=== PATIENT | male | born 1945 | race Caucasian/White ===

== ENCOUNTER 2019-05-11 07:54 | Outpatient (CLI) | payer MEDICARE, SELFPAY ==
--- NOTE | ~2019-05-11 | XR_ITS ---
EXAMINATION: XR knee LT min 4V EXAM DATE: 05/11/2019 08:28 INDICATION: No known recent injury provided at this time. Pain of the left knee. There was reported injury on 04/15/2019. TECHNIQUE: Left knee lateral, frontal AP, frontal PA tunnel, sunrise projections. Comparison is made to prior examination from 04/15/2019. FINDINGS: There are no acute left knee fractures or dislocations identified. There is severe primary osteoarthritis. Complete loss of the medial tibiofemoral joint space compartment. There is no subcut aneous gas. There is moderate amount of nonspecific joint fluid. This is most commonly sterile effus ion. Possible underlying etiologies include reactive from arthritis, overuse, or trauma. Hemarthrosi s and septic effusion are not radiographically excludable. Please clinically correlate. There is me niscal chondrocalcinosis. Chondrocalcinosis can be an age related finding, but with other possible et iologies including CPPD, parathyroid disorders, hemochromatosis, gout. There are no radiopaque fore ign bodies. Large amount of suprapatellar enthesopathy. Joint effusion and other findings appear unc hanged compared to prior study. IMPRESSION: Severe osteoarthritis. Chondrocalcinosis. Joint fluid. Reviewed, dictated and finalized at location A. BANDER
== END 2019-05-11 07:55 | disposition home or self-care (01) ==
PROVIDERS: PCP Family Medicine; Visit Provider Orthopaedic Surgery
DX: M25.562 Pain in left knee (principal)
CPT/HCPCS: 73564

== ENCOUNTER 2019-05-25 08:36 | Outpatient (CLI) | payer MEDICARE, SELFPAY ==
--- NOTE | ~2019-05-25 | XR_ITS ---
EXAMINATION: XR shoulder LT min 2V DATE: 05/25/2019 09:14 INDICATION: Left shoulder pain. Injury. TECHNIQUE: 5 views of left shoulder were obtained. COMPARISON: None. FINDINGS: Bone alignment is normal. No fracture. There is severe osteoarthritis of glenohumeral joint and moderate osteoarthritis of acromioclavicular joint. There is a loose body in acromioclavicular j oint. IMPRESSION: 1. Polyarticular osteoarthritis. Reviewed, dictated and finalized at location A. CTOR PEDIATRIC
== END 2019-05-25 08:37 | disposition home or self-care (01) ==
LOC: CHSIMG 08:39
PROVIDERS: PCP Family Medicine; Visit Provider Orthopaedic Surgery
DX: M25.512 Pain in left shoulder (principal)
CPT/HCPCS: 73030

== ENCOUNTER 2019-06-01 09:38 | Outpatient (RCR) | payer MEDICARE, SELFPAY ==
--- NOTE | 2019-06-01 11:10 | PTOPEVAL ---
Thank you for referring this patient to [facility]. Please review, sign, date and return this plan of care [facility]. I agree with and certify that the following plan of care is medically necessary. Referring Physician Date Admitting Provider: Attending Provider: Jatinder Graves MD Referring Provider: *PT Outpatient Evaluation Start: 06/01/19 10:03 Freq: Status: Active Protocol: Document 06/01/19 10:00 [facility] (Rec: 06/01/19 10:35 [facility] [id number]) Therapy Assessment Status Assessment Status Assessment Status Evaluation Outpatient Past Medical History Past Medical History Reason Unable to Obtain see patient intake form Evaluation Information Problem Diagnosis L shoulder pain Onset 05/25/19 Subjective Information patient reports he has been Query Text:As Reported By Patient/ having pain in the L shoulder Family for a few weeks. he reports the shoulder dislocated and he was able to push it back in himself. he reports he has andrea to the MD who gave him and injection. patient reports the shoudler has felt better since his injection. he reports he is having difficulty with putting on his jacket, getting up and down to a cahir, and reaching to his side and above his head. he reports bathing and dressing are difficult due to the L shoulder pain and immobility. Prior Level of Function Comments Additional Prior Level of Function patient uses a Opposing [employer] cane Comments in the R UE. he is complicated by a fused R knee joint. he also has been complicated by injuries/surgeries/instability of the L knee. he reports prior to a few weeks ago, he was in no pain with daily activities ADL's with the L shoulder. Pain Assessment Timing of Pain Assessment Timing of Pain Assessment Assessment Pain Scale Pain Scale Used Numeric (1 - 10) Self Report Pain Assessment Left Shoulder(s) Reported Pain Level 3 Pain Description Aching,Soreness Current Pain Intensity 3 Lowest Pain Intensity 1 Greatest Pain Intensity
== END 2019-06-01 17:00 | disposition home or self-care (01) ==
LOC: CHSPT 09:38
PROVIDERS: Visit Provider Orthopaedic Surgery
DX: M25.512 Pain in left shoulder (principal)
CPT/HCPCS: 97014; 97110; 97161; G0283

== ENCOUNTER 2020-06-01 17:25 | Inpatient (IN) | payer MEDICARE, SELFPAY ==
--- NOTE | ~2020-06-01 | CT_ITS ---
EXAMINATION: CT pelvis wo con DATE: 06/01/2020 20:48 INDICATION: Hip pain TECHNIQUE: Computed tomography (CT) of the pelvis was performed without intravenous contrast. The dos e-length product was 623.31 mGy-cm. Automated exposure control and iterative reconstruction technique were employed. COMPARISON: CT dated 09/01/2014 FINDINGS: There is osteopenia. There is moderate osteoarthritis of the hips. There is advanced lower lumbar spondylosis. No acute fracture or traumatic malalignment. Small fat-containing umbilical herni a. Mildly enlarged prostate gland. Visualized bowel is unremarkable. No bladder abnormalities. No lym phadenopathy. No significant vascular abnormality. IMPRESSION: 1. No acute fracture. Reviewed, dictated and finalized at location A. LE LAB TECHNICIAN IMPRESSION: 1. No acute fracture.
--- NOTE | ~2020-06-01 | MR_ITS ---
EXAMINATION: MR hip LT wo con DATE: 06/02/2020 17:20 INDICATION: Acute left hip pain. TECHNIQUE: Magnetic resonance imaging (MRI) of the left hip was performed without intravenous contras t. Sequences included axial and coronal PD-weighted FS FSE and axial T1-weighted FSE of the pelvis. S equences of the hip included 2D FIESTA, T1-weighted fast GRE, and axial, coronal, and sagittal PD-alexis ghted FS FSE. COMPARISON: CT pelvis 06/01/2020 FINDINGS: Bones/cartilage: Bone alignment is normal. No fracture. There is moderate lumbar spondylosis. There is mild osteoarthr itis of the hips. Labrum: There are tears of the acetabular jasmine bilaterally. Fluid: There are small effusions of the hip joints. There is mild bilateral trochanteric bursitis. Soft tissues: The prostate is mildly enlarged. There is moderate right gluteus minimus tendinopathy. There is mild right gluteus medius tendinopathy and mild left gluteus minimus and gluteus medius tendinopathy. Ther e is edema in left gluteus minimus muscle at its attachment to the ilium, consistent with strain. The iliopsoas tendons are normal. There is moderate tendinopathy of the hamstring origins bilaterally. IMPRESSION: 1. Mild osteoarthritis of the hips. 2. Small bilateral hip joint effusions. 3. Mild strain of left gluteus minimus muscle. Reviewed, dictated and finalized at location A. TENANCE FITTER
--- NOTE | ~2020-06-01 | XR_ITS ---
XR lumbar spine 2-3V 06/01/2020 22:20 Indication: Left hip and low back pain Procedure: 3 views of the lumbar spine Comparison: CT dated 09/01/2014 Findings: Moderate-severe lower thoracic and lumbar spondylosis. There is moderate lower facet hypert rophy. There is chronic wedge compression deformities of T11 and T12. No acute fracture or traumatic malalignment. No evidence for spondylolisthesis. There is levoscoliosis centered at L1. Sacral forame n are symmetric. Impression: 1: No acute abnormality of the lumbar spine. 2: Moderate-severe lumbar spondylosis with levoscoliosis. Reviewed, dictated and finalized at location A. D AUDITOR Impression: 1: No acute abnormality of the lumbar spine. 2: Moderate-severe lumbar spondylosis with levoscoliosis.
--- NOTE | ~2020-06-01 | XR_ITS ---
XR hip LT 2V w AP pelvis 06/01/2020 18:50 Indication: Left hip pain Procedure: AP pelvis and 2 views left hip Comparison: No prior studies for comparison. Findings: There is moderate osteoarthritis of the hips. Pelvic rings are intact. Sacral foramen are s ymmetric. There is lower lumbar spondylosis. No fracture or traumatic malalignment. There are vascula r calcifications at the femoral level. Impression: 1: Moderate symmetric osteoarthritis of the hips. Reviewed, dictated and finalized at location A. FABRIC CUTTER Impression: 1: Moderate symmetric osteoarthritis of the hips.
[2020-06-01 17:35] VITALS: BP 162/92; PULSE 93; RESP 17; TEMP 36.3; O2SAT 98
[2020-06-01] MEDS: MORPHINE SULFATE (*CRX) 4 MG/ML INJ IV PUSH (18:24)
--- NOTE | 2020-06-01 19:45 | ED.GENADULT ---
HPI - General Adult General Chief complaint: Extremity Injury, Lower Stated complaint: left hip pain Time Seen by Provider: 06/01/20 17:41 History of Present Illness HPI narrative: Patient is a 75-year-old male who presents to the ER with left hip pain. Reports 1 week ago he attempted to lift up 200 pound box containing a black stone grill by himself when he developed sudden onset pain. There is initially in the buttock region is now settled into the left hip region. Is worse with trying to bear weight and cannot walk to the bathroom anymore. Occasionally have radiation up towards his buttock and then down to his thigh. No foot drop or overt numbness. No saddle anesthesia or inability to urinate/stool. Related Data Allergies Allergy/AdvReac Type Severity Reaction Status Date / Time NSAIDS (Non-Steroidal Allergy Intermediate Unknown Verified 06/01/20 17:26 Anti-Inflamma metoclopramide Allergy Unknown Unknown Verified 06/01/20 17:26 Review of Systems Gastrointestinal: Gastrointestinal: Denies abdominal pain, Denies nausea and Denies vomiting Genitourinary: Genitourinary: Denies dysuria, Denies urinary frequency and Denies urinary incontinence Musculoskeletal: Musculoskeletal: Denies back pain, Reports arthralgias, Denies joint swelling and Reports muscle cramps Neurologic: Denies focal weakness and Denies numbness PMFSH Past Medical History Medical History (Updated 06/01/20 @ 23:27 by Levi Castro MD) Arthritis High cholesterol Vision abnormalities Vision loss Surgical History Surgical History History of shoulder surgery 3 History of surgery Right leg, 5 History of surgery Left leg, 2 Family History Family History Other Arthritis Cancer Hypertension Social History Social History Smoking status: Never smoker Alcohol intake: current Drinks per week: 1 Substance use: current 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 HEAD: Normocephalic, atraumatic. CHEST: Clear to auscultation. No respiratory distress. HEART: Regular rate and rhythm. Normal peripheral pulses. EXTREMITIES: Focused exam of left lower extremity reveals full range of motion of the left hip and knee without reproducible point tenderness with palpation and no shortening/deformity. However when patient tries to shift his weight he has sudden severe pain over the greater trochanter. SKIN: Warm, dry, no rash. NEURO: Alert and oriented x3. PSYCH: Normal mood and affect. Course Course Emergency Course: Patient still with significant pain after Dilaudid/Valium/morphine. Discussed with Dr. Graves. Admit obs for further evaluation. He will examine him and determine what type of MRI may be needed. Patient may have an abductor muscle tear. Patient accepted to hospital service. At 1 point while in the ER patient had some left arm pain that lasted for short amount of time. She had an EKG performed but he never had any chest pain. Vital Signs Vital signs: Vital Signs Temperature 97.3 F L 06/01/20 17:35 Pulse Rate 93 06/01/20 17:35 Respiratory Rate 17 06/01/20 17:35 Blood Pressure 162/92 H 06/01/20 17:35 Pulse Oximetry 98 06/01/20 17:35 Temperature 97.3 F L 06/01/20 17:35 Pulse Rate 94 06/01/20 21:58 Respiratory Rate 14 06/01/20 21:58 Blood Pressure 175/95 H 06/01/20 21:58 Pulse Oximetry 93 06/01/20 21:58 Medical Decision Making Vital Signs Vital Signs: Vital Signs Temperature 97.3 F L 06/01/20 17:35 Pulse Rate 93 06/01/20 17:35 Respiratory Rate 17 06/01/20 17:35 Blood Pressure 162/92 H 06/01/20 17:35
[2020-06-01] MEDS: diazePAM INJ (*CRX) 10 MG/2 ML SYRINGE 5 MG IV PUSH (20:37)
[2020-06-01] MEDS: ONDANSETRON INJ 4 MG/2 ML VIAL (20:37)
[2020-06-01 21:17] VITALS: BP 151/95; PULSE 94; RESP 19; O2SAT 95
[2020-06-01 21:25] LABS: Basophils Percent Auto 0.2 % (0.2-1.2); Eosinophils Absolute Auto 0.1 K/mm3 (0-0.3); Eosinophils Percent Auto 0.7 % (0-4.4); Hematocrit 48.3 % (42.0-52.0); Immature Granulocyte Absolute 0.03 K/mm3 (0.00-0.031); Immature Granulocyte Percent A 0.3 % (0-0.5); Lymphocytes Absolute Auto 1.68 K/mm3 (0.9-3.2); Lymphocytes Percent Auto 16.8 % (18.3-44.2); Mean Corpuscular HGB Conc 33.1 g/dl (32-36); Mean Corpuscular Hemoglobin 29.3 pg (26-34); Mean Corpuscular Volume 88.3 fl (80-100); Monocytes Absolute Auto 0.5 K/mm3 (0.1-0.6); Monocytes Percent Auto 4.9 % (2.6-8.5); Neutrophils Absolute Auto 7.7 K/mm3 (1.3-6.7); Neutrophils Percent Auto 77.1 % (45.5-73.1); Platelet Count Result 217 k/mm3 (150-375); Red Blood Count 5.47 M/mm3 (4.6-6.20); Red Cell Distribution Width 14.4 % (11.5-14.5)
[2020-06-01 21:40] LABS: Anion Gap 5 mmol/L (8-16); Blood Urea Nitrogen 25 mg/dL (9-20); CRP 0.9 mg/dL (<1.0); Calcium 9.5 mg/dL (8.4-10.2); Carbon Dioxide 28 mmol/L (22-30); Chloride 105 mmol/L (98-107); Estimated CRCL calculation 71 ml/min; Estimated Glomerular Filt Rate > 60; Glucose 120 mg/dL (75-110); Potassium 4.2 mmol/L (3.4-5.0); Sodium 138 mmol/L (137-145)
[2020-06-01 21:54] LABS: Erythrocyte Sedimentation Rate 3 mm/hr (0-20)
--- NOTE | 2020-06-01 21:55 | ECG_ITS ---
Measurements Intervals [employer] Rate: 95 P: 41 MS: 152 QRS: -11 QRSD: 122 T: -5 QT: 357 QTc: 449 Interpretive Statements SINUS RHYTHM POSSIBLE LEFT ATRIAL ENLARGEMENT RIGHT BUNDLE BRANCH BLOCK BASELINE ARTIFACT- I, III, AVR, AVL, AVF, V1-V2, V4 ABNORMAL ECG Electronically Signed On 06-07-2020 13:41:41 CDT by Godfrey Bird D.O.
[2020-06-01] MEDS: HYDROmorphone HCL INJ (*CRX) 1 MG/ML SYR IV PUSH (21:57)
[2020-06-01 21:58] VITALS: BP 175/95; PULSE 94; RESP 14; O2SAT 93
[2020-06-02] VITALS: BP 173/95; PULSE 100; RESP 20; TEMP 36.1; O2SAT 91
--- NOTE | 2020-06-02 00:15 | PM.IMHP ---
H&P: HPI History of Present Illness Date/Time: 06/02/20 00:15 Chief Complaint: Left hip pain++ Narrative: This is a 75 year old male with known history of hyperlipidemia who presented to the hospital with a complaint of left hip pain for the past week after he tried to live a 200 pound black stone grill into his truck. He initially has severe left lower buttock pain that seemed to radiate over his left thigh. His PCP instructed him to put heat on and so he did that for a few days and his pain only worsened. The patient has been using a walker to get up to go to the bathroom but hasn't been walking other than that. Today he came to the hospital as his pain has only worsened and his ambulatory dysfunction is worse. He denies any recent fevers, chills, chest pain, shortness of breath, nausea, vomiting, cough, abdominal pain, dysuria, hematuria, LE swelling, numbness or tingling of his left leg, foot, or saddle anesthesia. 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, thoracolumbar region Unequal limb length (acquired), right femur Unspecified hearing loss, unspecified ear Vision abnormalities Vision loss Surgical History Surgical History History of meniscectomy of left knee x2 per patient report History of shoulder surgery Left Shoulder AC Joint Separation Repair History of surgery Right Knee Fusion 5 Previous Surgical Procedures RLE Family History Family History Father Arthritis Hypertension Mother Hypertension Social History Social History Smoking status: Never smoker Alcohol intake: current Drinks per week: 2 Substance use: never Substance use type: does not use Living arrangements: with family 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 Gender identity (if verbalized by the patient): Male Spiritual care concerns: No Meds Home Medications and Allergies Home Medications Medication Instructions Recorded Confirmed Type sucralfate 1 gram tablet 1 gm PO Q4-6H PRN #100 tablet 02/04/19 06/02/20 Rx ezetimibe 10 mg tablet 10 mg PO DAILY #90 tablet 04/24/20 06/02/20 Rx pantoprazole 40 mg tablet,delayed 40 mg PO DAILY #90 tablet 05/19/20 06/02/20 Rx release Allergies Allergy/AdvReac Type Severity Reaction Status Date / Time NSAIDS (Non-Steroidal Allergy Intermediate Unknown Verified 06/01/20 17:26 Anti-Inflamma metoclopramide Allergy Unknown Unknown Verified 06/01/20 17:26 Vital Signs Vital Signs - 24 hr 06/01/20 17:35 06/01/20 21:17 06/01/20 21:58 Temperature 36.3 C L Pulse Rate 93 94 94 Respiratory Rate 17 19 14 Blood Pressure 162/92 H 151/95 H 175/95 H Pulse Oximetry 98 95 93 Exam Const: General: cooperative, alert, awake and ill appearing Nutritional Appearance: well nourished Orientation/consciousness: patient oriented x3 HENMT: Head: normal to inspection General nose exam: Normal external nose present Face and sinus: normal facial exam Mouth: Yes Normal oral and palatal mucosa present and Yes oropharynx normal Eyes: Pupils: Equal, round and reactive pupils present EOM: EOMs intact bilaterally Neck: Neck: supple and no JVD Thyroid: thyroid normal Lymphatic: lymphadenopathy not noted Resp: Effort & Inspection: normal respiratory effort Auscultation: clear to auscultation bilat
--- NOTE | 2020-06-02 00:20 | ADMGEN ---
This patient, Prabhu Rodriges, was admitted to Medical Room 250-. Patient/family oriented to hospital policies and general routines including ID bracelet, bed and alarms, visiting hours, pain management, procedures, bathroom and other care routines, personal items, smoking policy, room service/diet, and visiting hours. Information on how to activate the Rapid Response Team has been discussed. Patient/Family are encouraged to report perceived risks to care and to ask questions if they do not understand what they are told or what they should do.
[2020-06-02] MEDS: HYDROcodone/acetaminophen (*CRX) 5-325 MG TABLET 1 TAB PO ×2 (00:52→08:26)
[2020-06-02] MEDS: CYCLOBENZAPRINE HCL 10 MG TABLET PO ×3 (01:24→20:19)
[2020-06-02 04:51] VITALS: BP 128/71; PULSE 106; RESP 20; TEMP 36.1; O2SAT 97
[2020-06-02 05:27] LABS: Basophils Percent Auto 0.2 % (0.2-1.2); Eosinophils Absolute Auto 0.1 K/mm3 (0-0.3); Eosinophils Percent Auto 1.4 % (0-4.4); Hematocrit 45.4 % (42.0-52.0); Hemoglobin 14.8 g/dL (14.0-18.0); Immature Granulocyte Absolute 0.06 K/mm3 (0.00-0.031); Immature Granulocyte Percent A 0.6 % (0-0.5); Lymphocytes Absolute Auto 2.08 K/mm3 (0.9-3.2); Lymphocytes Percent Auto 22.1 % (18.3-44.2); Mean Corpuscular HGB Conc 32.6 g/dl (32-36); Mean Corpuscular Hemoglobin 29.3 pg (26-34); Mean Corpuscular Volume 89.9 fl (80-100); Mean Platelet Volume 9.2 fl (7.4-10.4); Monocytes Absolute Auto 0.5 K/mm3 (0.1-0.6); Monocytes Percent Auto 5.7 % (2.6-8.5); Neutrophils Absolute Auto 6.6 K/mm3 (1.3-6.7); Platelet Count Result 221 k/mm3 (150-375); Red Blood Count 5.05 M/mm3 (4.6-6.20); Red Cell Distribution Width 14.5 % (11.5-14.5); White Blood Count 9.4 K/mm3 (4.5-10.0)
[2020-06-02 05:45] LABS: Anion Gap 5 mmol/L (8-16); Blood Urea Nitrogen 29 mg/dL (9-20); Calcium 9.1 mg/dL (8.4-10.2); Carbon Dioxide 30 mmol/L (22-30); Chloride 103 mmol/L (98-107); Estimated CRCL calculation 57 ml/min; Estimated Glomerular Filt Rate > 60; Glucose 98 mg/dL (75-110); Potassium 4.1 mmol/L (3.4-5.0); Sodium 138 mmol/L (137-145)
[2020-06-02] MEDS: ENOXAPARIN 40 MG/0.4 ML SYRINGE SUB-Q (08:22)
[2020-06-02] MEDS: predniSONE 20 MG TABLET 60 MG PO (08:22)
[2020-06-02 08:45] VITALS: BP 147/77; PULSE 86; RESP 16; TEMP 36.9; O2SAT 98
--- NOTE | 2020-06-02 09:26 | PM.CNOR ---
Assessment and Plan Assessment and plan (1) Acute pain of left hip: Code(s): M25.552 - Pain in left hip Status: Acute Assessment and Plan: History, exam, radiographs and CT scan reviewed with the patient in depth today. patient continues to endorse left hip pain however does feel that his pain is better controlled now that he is here in the hospital. Patient currently has a Guevara catheter in place. On exam, pain over the lateral aspect of the left hip with palpation. No pain with internal external rotation of the left hip and negative Shuck test. Left knee joint without pain or effusion noted. 2+ pedal pulses, positive ankle dorsiflexion / plantar flexion. Concern for occult left hip fracture versus gluteus medius tear. Recommended MRI of the left hip and pelvis at this time for further evaluation. Patient to continue bedrest in the interim. Orders for ice to the lateral hip as well as incentive spirometry use/SCDs due to lack of mobility. We will determine further plan of care pending MRI results. Continue pain control in the interim. (2) DJD (degenerative joint disease) of knee: Qualifiers: Osteoarthritis type: primary Laterality: left Qualified Code(s): M17.12 - Unilateral primary osteoarthritis, left knee Code(s): M17.10 - Unilateral primary osteoarthritis, unspecified knee Status: Acute Assessment and Plan: Patient previously seen by Orthopedic service for chronic left knee pain. Previous radiographs of the left knee reveal severe, [id number], medial compartment DJD with diffuse osteophyte formation and notable varus deformity. Varus deformity noted on exam today as well. Patient denies left knee pain. No left knee joint effusion noted. (3) Acquired absence of right knee: Code(s): Z89.521 - Acquired absence of right knee Status: Acute Assessment and Plan: Patient has a history of right knee joint fusion status post injury after a dog bite. On exam, right lower extremity without acute injury. No tenderness. Notable atrophy of the right quad. Additional Plan Attending physician, Dr. Jatinder Graves, reviewed radiographs and CT scan. Agrees with plan of care to continue conservative treatment pending MRI results. History of Present Illness HPI Consult date: 06/02/20 Requesting physician: Levi Castro MD Consult reason: joint pain (Left Hip ) Chief complaint: hip pain, intractable pain Narrative: 75-year-old male presented [facility] 1 week status post injury of the left hip while lifting a 200 lb black stone grill into his truck and experiencing an acute onset of left hip/buttock pain. Patient has a history of a right knee fusion status post dog injury and several surgeries. He is known to our Orthopedic service for chronic left knee/shoulder pain and severe left knee DJD with varus deformity. He was seen in our office on 05/23/20 and underwent a cortisone injection of the left knee/shoulder by Dr. Graves. He has extremely limited motion of the right lower extremity due to previous fusion and notable atrophy of the quad on exam. He refers to his left leg as his good leg and feels that the leg took the majority of the pressure when lifting the heavy object onto his truck. He was unable to walk back to the house s/p injury due to extreme pain. He contacted his primary care physician who began pain control and recommended heat applications of the left hip. The patient reports left lateral-sided hip pain which radiates upward into the lateral lumbar spine and inability to bear weight on the left lower extremity without pain radiating into the anterior thigh. He was having so much difficulty ambulating that he required assistance getting into the car by 4 family members per patient report. Despite conservative treatment at home, his pain continued to worsen over the course of the week which prompted his arrival to the emergency room for further evaluation. Deloris
[2020-06-02] MEDS: PANTOPRAZOLE 40 MG TABLET PO (11:08)
[2020-06-02] MEDS: EZETIMIBE 10 MG TABLET PO (11:08)
--- NOTE | 2020-06-02 13:42 | PM.IMPN ---
Progress Note: A&P Assessment and Plan (1) Acute pain of left hip: Code(s): M25.552 - Pain in left hip Status: Acute Assessment and Plan: Pain radiates from left buttock to anterior left thigh. Pain is worst when he stands straight up to walk. Patient of Dr Graves's - appreciate orthopedic surgery input. Plan is to obtain MRI to assess for muscle or ligament tear or occult fracture. Recommend bedrest until further details are obtained. Imaging with pelvis XR and CT, lumbar spine XR show no acute fractures. Continue supportive care with pain control and ice. Prednisone started by previous provider, continue for now. (2) GERD (gastroesophageal reflux disease): Code(s): K21.9 - Gastro-esophageal reflux disease without esophagitis Status: Chronic Assessment and Plan: Stable, no acute issues. Continue PPI. (3) Hyperlipidemia, unspecified: Code(s): E78.5 - Hyperlipidemia, unspecified Status: Chronic Assessment and Plan: Maintained on home statin therapy. Subjective Date/time seen: 06/02/20 1300 Interval history: Mr. Rodriges is a 75yo M admitted for ambulatory dysfunction related to left hip pain. He experienced a sudden onset of significant pain to his left buttock wrapping to his left thigh when he was lifting a 200lb item into his truck by himself 1 week ago. He has been having difficulty walking since then due to pain. He has great pain when he stands straight up, but has been managing at home by walking crouched over and basically crawling up the steps. He reports his pain is reasonably controlled at present while resting. He had some nausea associated with pain earlier this morning, improved with antiemetic. Denies numbness or tingling to left leg. No chest pain, shortness of breath, cough, or vomiting. Review of Systems Review of Systems: All systems reviewed & are unremarkable except as noted in HPI and below Exam Narrative: Exam Narrative: General: Male resting comfortably resting semi-walton's position bed in no acute distress. HEENT: Normocephalic, EOMI, oral mucosa moist. Cardiovascular: Rate and rhythm are regular. Respiratory: Lungs clear to auscultation bilaterally. Respirations even and non-labored. Abdomen: Soft, non-tender, non-distended, bowel sounds present. Extremities: Peripheral pulses intact. No edema. Ice pack to left hip, no ecchymosis or swelling noted. Pain with any movement of left lower extremity. Neuro: No focal neurological deficits. Speech is clear. Objective Data Vital Signs Vital Signs: Last Vital Signs Temp 98.4 F 06/02/20 08:45 Pulse 86 06/02/20 08:45 Resp 16 06/02/20 08:45 BP 147/77 H 06/02/20 08:45 Pulse Ox 98 06/02/20 08:45 Intake/Output Intake/Output: Intake & Output 05/30/20 05/31/20 06/01/20 06/02/20 23:59 23:59 23:59 23:59 Intake Total 670 Output Total 400 Balance 270 Meds/Results Medications: Active Medications Generic Name Dose Route Start Last Admin Trade Name Freq PRN Reason Stop Dose Admin Acetaminophen 650 mg 06/01/20 23:16 Acetaminophen 325 Mg Tablet PO Q4H PRN Mild Pain (1-3) or Fever Hydrocodone Bitart/Acetaminophen 1 tab 06/01/20 23:16 06/02/20 08:26 Hydrocodone/Acetaminophen (*Crx) 5-325 Mg Tablet PO 1 tab Q4H PRN Administration Pain Rated 4-6 Cyclobenzaprine HCl 10 mg 06/02/20 00:51 06/02/20 08:22 Cyclobenzaprine Hcl 10 Mg Tablet PO 10 mg Q12HR YOLI Administration Ezetimibe 10 mg 06/02/20 09:20 06/02/20 11:08 Ezetimibe 10 Mg Tablet PO 10 mg DAILY YOLI Administration Enoxaparin Sodium 40 mg 06/02/20 09:00 06/02/20 08:22 Enoxaparin 40 Mg/0.4 Ml Syringe SUB-Q 40 mg DAILY YOLI Administration Hydralazine HCl 10 mg 06/02/20 00:14 Hydralazine Hcl 20 Mg/Ml Vial IV PUSH 0
[2020-06-02 14:30] VITALS: BP 124/72; PULSE 94; RESP 16; TEMP 37.1; O2SAT 94
[2020-06-02 20:00] VITALS: PULSE 94; RESP 16; O2SAT 94
[2020-06-02 22:00] VITALS: BP 126/75; PULSE 98; RESP 18; TEMP 36.3; O2SAT 96
[2020-06-03 06:00] VITALS: BP 129/62; PULSE 72; RESP 18; TEMP 35.8; O2SAT 96
[2020-06-03] MEDS: PANTOPRAZOLE 40 MG TABLET PO (08:32)
[2020-06-03] MEDS: ENOXAPARIN 40 MG/0.4 ML SYRINGE SUB-Q (08:32)
[2020-06-03] MEDS: CYCLOBENZAPRINE HCL 10 MG TABLET PO ×2 (08:32→21:02)
[2020-06-03] MEDS: EZETIMIBE 10 MG TABLET PO (08:32)
[2020-06-03] MEDS: predniSONE 20 MG TABLET 60 MG PO (08:32)
[2020-06-03] MEDS: KETOROLAC 15 MG/ML VIAL (*BKC) IV PUSH ×2 (12:18→22:04)
--- NOTE | 2020-06-03 14:34 | PM.IMPN ---
Progress Note: A&P Assessment and Plan (1) Acute pain of left hip: Code(s): M25.552 - Pain in left hip Status: Acute Assessment and Plan: Pain radiates from left buttock to anterior left thigh. Pain is worst when he stands straight up to walk so he is mostly crouching over to walk. Patient of Dr Graves's - appreciate ortho input. Imaging with pelvis XR and CT, lumbar spine XR show no acute fractures. MRI left hip shows evidence consistent of left gluteus minimus muscle strain. Also shows bilateral acetabular labrum tears and other mild tendinopathy is of gluteus muscles BRIEN. Continue supportive care with pain control and ice. Continue prednisone and can taper at discharge. Continue PT/OT. Seems suitable for home health therapy, at home to help him. (2) GERD (gastroesophageal reflux disease): Code(s): K21.9 - Gastro-esophageal reflux disease without esophagitis Status: Chronic Assessment and Plan: Stable, no acute issues. Continue PPI. (3) Hyperlipidemia, unspecified: Code(s): E78.5 - Hyperlipidemia, unspecified Status: Chronic Assessment and Plan: Maintained on home statin therapy. Subjective Date/time seen: 06/03/20 14:00 Interval history: Mr. Rodriges is a 75yo M admitted for ambulatory dysfunction related to left hip pain. He experienced a sudden onset of significant pain to his left buttock wrapping to his left thigh when he was lifting a 200lb item into his truck by himself 1 week ago. He has been having difficulty walking since then due to pain. He has great pain when he stands straight up, but has been managing at home by walking crouched over and basically crawling up the steps. He is seen in follow up this afternoon with his , Dionne, at the bedside. He is sitting up in the bedside chair in no acute distress and his pain is controlled. No numbness or tingling to left leg. No chest pain, shortness of breath, cough, nausea or vomiting. Review of Systems Review of Systems: All systems reviewed & are unremarkable except as noted in HPI and below Exam Narrative: Exam Narrative: General: Male resting comfortably sitting up in bedside chair in no acute distress. HEENT: Normocephalic, EOMI, oral mucosa moist. Cardiovascular: Rate and rhythm are regular. Respiratory: Lungs clear to auscultation bilaterally. Respirations even and non-labored. Abdomen: Soft, non-tender, non-distended, bowel sounds present. Extremities: Peripheral pulses intact. No edema. Ice pack to left hip, no ecchymosis or swelling noted. Neuro: No focal neurological deficits. Speech is clear. Objective Data Vital Signs Vital Signs: Last Vital Signs Temp 96.5 F L 06/03/20 06:00 Pulse 72 06/03/20 06:00 Resp 18 06/03/20 06:00 BP 129/62 06/03/20 06:00 Pulse Ox 96 06/03/20 06:00 Intake/Output Intake/Output: Intake & Output 05/31/20 06/01/20 06/02/20 06/03/20 23:59 23:59 23:59 23:59 Intake Total 1020 590 Output Total 800 500 Balance 220 90 Meds/Results Medications: Active Medications Generic Name Dose Route Start Last Admin Trade Name Freq PRN Reason Stop Dose Admin Acetaminophen 650 mg 06/01/20 23:16 Acetaminophen 325 Mg Tablet PO Q4H PRN Mild Pain (1-3) or Fever Hydrocodone Bitart/Acetaminophen 1 tab 06/01/20 23:16 06/02/20 08:26 Hydrocodone/Acetaminophen (*Crx) 5-325 Mg Tablet PO 1 tab Q4H PRN Administration Pain Rated 4-6 Cyclobenzaprine HCl 10 mg 06/02/20 00:51 06/03/20 08:32 Cyclobenzaprine Hcl 10 Mg Tablet PO 10 mg Q12HR YOLI Administration Ezetimibe 10 mg 06/02/20 09:20 06/03/20 08:32 Ezetimibe 10 Mg Tablet PO 10 mg DAILY YOLI Administration Enoxaparin Sodium 40 mg 06/02/20 09:00 06/03/20 08:32 Enoxaparin 40 Mg/0.4 Ml Syringe SUB-Q 40 mg
[2020-06-03 15:42] VITALS: BP 132/67; PULSE 89; RESP 20; TEMP 36.5; O2SAT 99
[2020-06-03 22:00] VITALS: BP 162/81; PULSE 91; RESP 21; TEMP 36.6; O2SAT 100
--- NOTE | 2020-06-04 03:38 | PC.NURSE ---
Daylight Savings Time For Daylight Savings Time Ending in the Fall - Clocks are moved back. For Daylight Savings Time Beginning in the Spring - Clocks are moved ahead. For [facility], the time of change occurs at 0200 hrs. Time is taken from the civil process server. This entry on the patient's chart recognizes the change in time reflected during documentation. Example: 2 entries for vital signs may be charted for 0200 hrs.
[2020-06-04 06:00] VITALS: BP 172/86; PULSE 98; RESP 18; TEMP 36.4; O2SAT 96
[2020-06-04] MEDS: KETOROLAC 15 MG/ML VIAL (*BKC) IV PUSH (06:33)
[2020-06-04] MEDS: CYCLOBENZAPRINE HCL 10 MG TABLET PO (08:00)
[2020-06-04] MEDS: PANTOPRAZOLE 40 MG TABLET PO (08:01)
[2020-06-04] MEDS: ENOXAPARIN 40 MG/0.4 ML SYRINGE SUB-Q (08:01)
[2020-06-04] MEDS: predniSONE 20 MG TABLET 60 MG PO (08:01)
[2020-06-04] MEDS: EZETIMIBE 10 MG TABLET PO (08:01)
--- NOTE | 2020-06-04 11:43 | PM.DS ---
DS: Admitting Diagnosis Admitting Diagnosis Admitting Diagnosis: Left hip pain DS: Discharge Diagnosis Discharge Diagnosis (1) Acute pain of left hip: Code(s): M25.552 - Pain in left hip Status: Acute Assessment and Plan: Date of Admission 06/01/20 Date of Discharge/DOS 06/04/20 Mr. Rodriges is a 75yo M with history of dyslipidemia and GERD who presented to the ED for evaluation of ambulatory dysfunction and left leg pain. He described sudden pain to left hip/thigh occurred 1 week ago when he was lifting a 200lb box into the bed of his truck by himself. He describes worsening pain since that day and now is having difficulty walking; not able to stand up straight due to significant pain thus he has been mostly bending all the way forward to be able to walk. Orthopedic surgery was consulted for opinions. Multiple XR demonstrated no fractures. MRI demonstrated left gluteus minimus muscle strain, BRIEN acetabular labrum tears and other mild tendinopathy of gluteus muscles BRIEN (report detailed below). Ortho recommends conservative therapy with ice, pain control, PT/OT. Also treated with muscle relaxer and steroids. He has made improvement with therapy over the weekend and is a bit more mobile but will benefit from home health. His is also available to help him. Patient is hemodynamically stable and he and his are comfortable with plan for discharge home with home health 06/04/20. Follow up with PCP in 1 week, follow up with Dr Graves as needed if issues worsen. Pain radiates from left buttock to anterior left thigh. Pain is worst when he stands straight up to walk so he is mostly crouching over to walk. Patient of Dr Graves's - appreciate ortho input. Imaging with pelvis XR and CT, lumbar spine XR show no acute fractures. MRI left hip shows evidence consistent of left gluteus minimus muscle strain. Also shows bilateral acetabular labrum tears and other mild tendinopathy is of gluteus muscles BRIEN. Continue supportive care with pain control and ice. Continue prednisone, taper at discharge. Continue PT/OT with home health. (2) GERD (gastroesophageal reflux disease): Code(s): K21.9 - Gastro-esophageal reflux disease without esophagitis Status: Chronic Assessment and Plan: Stable, no acute issues. Continue PPI. (3) Hyperlipidemia, unspecified: Code(s): E78.5 - Hyperlipidemia, unspecified Status: Chronic Assessment and Plan: Maintained on home statin therapy. DS: Summary Hospital Course Hospital Course: See above Time Spent with Patient Time attestation: Total time spent providing and/or coordinating discharge services: 35 minutes Exam Narrative: Exam Narrative: General: Male resting comfortably sitting up in bedside chair in no acute distress. HEENT: Normocephalic, EOMI, oral mucosa moist. Cardiovascular: Rate and rhythm are regular. Respiratory: Lungs clear to auscultation bilaterally. Respirations even and non-labored. Abdomen: Soft, non-tender, non-distended, bowel sounds present. Extremities: Peripheral pulses intact. No edema. Ice pack to left hip, no ecchymosis or swelling noted. Neuro: No focal neurological deficits. Speech is clear. DS: Data Additional Comments Additional comments: Last Vital Signs Temp 97.6 F 06/04/20 13:53 Pulse 96 06/04/20 13:53 Resp 16 06/04/20 13:53 BP 140/76 06/04/20 13:53 Pulse Ox 99 06/04/20 13:53 ITS Impressions Hip/Pelvis X-Ray 06/01/20 18:51 Impression: 1: Moderate symmetric osteoarthritis of the hips. Pelvis CT 06/01/20 20:50 IMPRESSION: 1. No acute fracture. Lumbar Spine X-Ray 06/01/20 22:28 Impression: 1: No acute abnormality of the lumbar spine. 2: Moderate-severe lumbar spondylosis with levoscoliosis.
[2020-06-04 13:53] VITALS: BP 140/76; PULSE 96; RESP 16; TEMP 36.4; O2SAT 99
== END 2020-06-04 14:20 | disposition home health service (06) | DRG 556 ==
LOC: ANHED 23:27 → ANH2MED 23:39
PROVIDERS: Admitting Provider Family Medicine; Emergency Provider Emergency Medicine; PCP Family Medicine; Visit Provider Internal Medicine
DX: M25.552 Pain in left hip (principal); X50.0XXA Overexertion from strenuous movement or load, initial encounter; M17.12 Unilateral primary osteoarthritis, left knee; M47.895 Other spondylosis, thoracolumbar region; M19.012 Primary osteoarthritis, left shoulder; K21.9 Gastro-esophageal reflux disease without esophagitis; E78.5 Hyperlipidemia, unspecified; Z79.899 Other long term (current) drug therapy; Z89.521 Acquired absence of right knee; Z98.1 Arthrodesis status
CPT/HCPCS: 36415; 72100; 72192; 73502; 73721; 80048; 85025; 85652; 86140; 93005; 96372; 96374; 96375; 97116; 97161; 97165; 97530; 97535; 99285; A9270; G0378; J1170; J1650; J1885; J2270; J2405; J3360; J7512

== ENCOUNTER 2020-07-19 16:01 | Outpatient (RCR) | payer MEDICARE, SELFPAY ==
--- NOTE | 2020-07-28 08:45 | PTOPEVAL ---
Thank you for referring Prabhu Rodriges to [facility] The patient is scheduled to be seen for therapy? ____x/week for ___ weeks. Please review, sign, date and return this plan of care BON. I agree with and certify that the following plan of care is medically necessary. Referring Physician Date Admitting Provider: Attending Provider: Jatinder Graves MD Referring Provider: *PT Outpatient Evaluation Start: 07/19/20 16:09 Freq: Status: Active Protocol: Document 07/19/20 16:10 [facility] (Rec: 07/19/20 16:59 [facility] [id number]) Therapy Assessment Status Assessment Status Assessment Status Evaluation Outpatient Past Medical History Neurological History Hx Neurological Disorders No Significant History Cardiovascular History Hx Cardiac Catheterization Yes: 30 years ago Hx Hypercholesterolemia Yes Respiratory History Hx Respiratory Disorders No Significant History Gastrointestinal History Hx Gastroesophageal Reflux Disease Yes Genitourinary History Hx Genitourinary Disorders No Significant History Musculoskeletal History Hx Arthritis Yes: fingers and spine Hx Orthopedic Surgery Yes Hx Other Musculoskeletal Disorders Yes: knee fusion rt side Hematological History Hx Hematological Disorders No Significant History Endocrine History Hx Endocrine Disorders No Significant History HEENT History Hx Cataracts Yes: rt eye Hx Sinus Problems Yes: seasonal Integumentary History Hx Skin Disorders No Significant History Reproductive History Hx Reproductive Disorders No Significant History Psychosocial History Hx Psychiatric Disorders No Significant History Pain History Has Past Pain Affected Your Daily Life Yes Effective Methods of Pain Control obtain shots from Dr Floyd Anesthesia History Hx Anesthesia Reactions No Significant History Evaluation Information Problem Diagnosis L gluteus minimus strain Onset 05/28/20 Additional Evaluation Detail LEFS = 86% functionally declined Subjective Information patient reports he injured the Query Text:As Reported By Patient/ Monet kaminski on 05/28/20. he reports Family he was lifting a grill in a box into the back of his truck . he reports the majority of his pain is in the L lateral hip and he does have pain in the front of the thigh too. he reports he is unable to bear weight due to pain in the L hip. patient reports he is unable to walk without crutc
--- NOTE | 2020-09-18 09:24 | PCPTNOTE ---
09/18/20 - mr. hay has not been to therapy in over a month. as of this date, his account will be dc'd, and all progress towards goals will be taken from his most recent evaluation/note.
== END 2020-08-02 10:13 | disposition home or self-care (01) ==
LOC: CHSPT 16:01
PROVIDERS: Visit Provider Orthopaedic Surgery
DX: S76.012A Strain of muscle, fascia and tendon of left hip, initial encounter (principal)
CPT/HCPCS: 97014; 97110; 97116; 97161; G0283

== ENCOUNTER 2022-10-08 08:52 | Outpatient (CLI) | payer MEDICARE, SELFPAY ==
--- NOTE | ~2022-10-08 | XR_ITS ---
XR shoulder RT min 2V DATE: 10/08/2022 09:15 INDICATION: Right shoulder pain TECHNIQUE: 3 views COMPARISON: None FINDINGS: There is, calcinosis at the acromioclavicular and glenohumeral joints. There is prominent glenohumeral joint space narrowing and spurring consistent with severe osteoarthri tis. No fracture or dislocation, periosteal reaction or bone destruction of the right shoulder is detected . IMPRESSION: Severe glenohumeral osteoarthritis Chondrocalcinosis Reviewed, dictated and finalized at location L.
--- NOTE | ~2022-10-08 | XR_ITS ---
XR shoulder LT min 2V DATE: 10/08/2022 09:15 INDICATION: Left shoulder pain. Surgery 30 years ago. TECHNIQUE: 3 views COMPARISON: None FINDINGS: There is chondrocalcinosis at the acromioclavicular joint but the joint space appears well preserved. There is some prominent glenohumeral joint space narrowing with very prominent humeral head spurring at the glenohumeral joint. Degenerative change at the apophyseal and uncovertebral joints in the lower included cervical spine. Degenerative spurring of the thoracic spine. IMPRESSION: Severe glenohumeral osteoarthritis Chondrocalcinosis at the bib clavicular joint Degenerative change at the lower cervical apophyseal and uncovertebral joints and degenerative spurri ng of the thoracic spine Reviewed, dictated and finalized at location L. IMPRESSION: Severe glenohumeral osteoarthritis Chondrocalcinosis at the bib clavicular joint Degenerative change at the lower cervical apophyseal and uncovertebral joints a nd degenerative spurring of the thoracic spine
== END 2022-10-08 08:53 | disposition home or self-care (01) ==
LOC: CHSIMG 08:55
PROVIDERS: PCP Family Medicine; Visit Provider Orthopaedic Surgery
DX: M25.511 Pain in right shoulder (principal); M25.512 Pain in left shoulder; M19.012 Primary osteoarthritis, left shoulder; M19.011 Primary osteoarthritis, right shoulder; M11.212 Other chondrocalcinosis, left shoulder; M11.211 Other chondrocalcinosis, right shoulder; M77.8 Other enthesopathies, not elsewhere classified; M46.04 Spinal enthesopathy, thoracic region
CPT/HCPCS: 73030

== ENCOUNTER 2023-04-29 13:46 | Emergency (ER) | payer MEDICARE, SELFPAY ==
[2023-04-29 14:01] VITALS: BP 197/100; PULSE 66; RESP 18; TEMP 37.1; O2SAT 98
[2023-04-29 15:40] LABS: Basophils Percent Auto 0.2 % (0.2-1.2); Eosinophils Percent Auto 0.1 % (0-4.4); Hematocrit 49.5 % (42.0-52.0); Hemoglobin 16.1 g/dL (14.0-18.0); Immature Granulocyte Absolute 0.03 K/mm3 (0.00-0.031); Immature Granulocyte Percent A 0.3 % (0-0.5); Lymphocytes Absolute Auto 1.43 K/mm3 (0.9-3.2); Lymphocytes Percent Auto 15.4 % (18.3-44.2); Mean Corpuscular HGB Conc 32.5 g/dl (32-36); Mean Corpuscular Volume 86.2 fl (80-100); Mean Platelet Volume 8.7 fl (7.4-10.4); Monocytes Absolute Auto 0.5 K/mm3 (0.1-0.6); Monocytes Percent Auto 5.4 % (2.6-8.5); Neutrophils Absolute Auto 7.3 K/mm3 (1.3-6.7); Neutrophils Percent Auto 78.6 % (45.5-73.1); Platelet Count Result 283 k/mm3 (150-375); Red Blood Count 5.74 M/mm3 (4.6-6.20); Red Cell Distribution Width 14.3 % (11.5-14.5); White Blood Count 9.3 K/mm3 (4.5-10.0)
[2023-04-29 15:54] LABS: Alanine Aminotransferase 18 U/L (6-50); Albumin Level 4.7 g/dL (3.5-5.1); Alkaline Phosphatase 94 U/L (38-126); Anion Gap 10 mmol/L (8-16); Aspartate Amino Transferase 42 U/L (17-59); Bilirubin,Total 0.9 mg/dL (0.2-1.3); Blood Urea Nitrogen 22 mg/dL (9-20); Calcium 9.9 mg/dL (8.4-10.2); Carbon Dioxide 26 mmol/L (22-30); Chloride 102 mmol/L (98-107); Estimated CRCL calculation 60 ml/min; Estimated Glomerular Filt Rate > 60; Glucose 101 mg/dL (65-110); Potassium 3.9 mmol/L (3.4-5.0); Sodium 138 mmol/L (137-145)
[2023-04-29 15:58] LABS: Appearance Urine Clear (Clear); Bacteria Urine None Seen /hpf; Bilirubin Urine Negative (Negative); Blood Urine Negative (Negative); Color Urine Dark Yellow (Yellow); Glucose Urine UA Negative (Negative); Ketones Urine 1+ mg/dL (Negative); Leukocyte Esterase Ur Negative LEU/UL (Negative); Nitrate Urine Negative (Negative); Non Pathogenic Casts 0-2; Protein Urine 1+ mg/dL (Negative); Specific Grav Ur 1.017 (1.001-1.035); Squamous Epithelial Cell Urine None seen /hpf (Few); Urobilinogen Urine 0.2 mg/dL (<2.0); WBC Urine 0-5 /hpf; pH Urine 6.5 (5.0-9.0)
[2023-04-29 15:59] LABS: Add Urine Microscopic? YES
--- NOTE | 2023-04-29 16:25 | ED.GENADULT ---
HPI - General Adult General Chief complaint: Urogenital-Male Stated complaint: Pt is unable to void Time Seen by Provider: 04/29/23 14:59 History of Present Illness HPI narrative: 78-year-old male with history of Parkinson's disease presenting to the emergency department for evaluation of urinary retention. Patient states he has had a history increased urinary frequency but since last night he had not been able to urinate. Patient described increased abdominal pressure. Related Data Allergies Allergy/AdvReac Type Severity Reaction Status Date / Time NSAIDS (Non-Steroidal Allergy Intermediate Unknown Verified 04/29/23 16:01 Anti-Inflamma metoclopramide Allergy Unknown Unknown Verified 04/29/23 16:01 Review of Systems Review of Systems: All systems reviewed & are unremarkable except as noted in HPI and below PMFSH Past Medical History Medical History Acquired absence of right knee Arthritis Atherosclerotic heart disease of [place] coronary artery with other forms of angina pectoris Constipation DJD (degenerative joint disease) of knee DJD of left shoulder GERD (gastroesophageal reflux disease) High cholesterol Hyperlipidemia, unspecified Left knee DJD Nausea Separation of AC joint Spondylolysis, thoracolumbar region Unequal limb length (acquired), right femur Unspecified hearing loss, unspecified ear Urinary frequency Vision abnormalities Vision loss Surgical History Surgical History History of meniscectomy of left knee x2 per patient report History of shoulder surgery Left Shoulder AC Joint Separation Repair History of surgery Right Knee Fusion 5 Previous Surgical Procedures RLE Family History Family History Father Arthritis Hypertension Mother Hypertension Social History Social History Smoking status: Never smoker Alcohol intake: current Drinks per week: 2 Substance use: never Substance use type: does not use Lack of Transportation: No Lack of Food: Never True Current Housing: I Have Housing Concerned About Future Housing: No Difficulty Paying Gas/Electric Bills: No Difficulty Paying for Meds: No Currently Unemployed: No Education: Associate Degree Difficulty w/ Childcare or Family Care: No Living arrangements: with family Occupation/Education: retired 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 HEAD: normocephalic, atraumatic. EYES: PERRLA/EOMI, conjunctivae clear. NOSE: Normal no drainage EARS:TMS clear with good light reflex. THROAT: Pharynx clear, no exudate. NECK: Supple. No adenopathy, no masses. RESPIRATORY: Airway patent, respirations nonlabored. Clear to auscultation bilaterally, no rales, rhonchi, wheezing. CARDIOVASCULAR: Regular rate and rhythm without murmurs rubs or gallops. ABDOMINAL: Soft, nontender, nondistended, normal bowel sounds MUSCULOSKELETAL: Moves all extremities. Strength/ROM intact, No edema, No calf tenderness. NEURO: Alert. Cranial nerves II through XII intact. SKIN: Warm, dry. Normal Color Course Course Emergency Course: 78-year-old male presents to To the ED for evaluation of urinary retention. Patient has a Guevara catheter placed and did feel significantly improved. Patient was admitted results of his workup and treatment. Patient was encouraged of close follow-up with Urology. All questions and concerns were addressed prior Vital Signs Vital signs: Vital Signs Temperature 98.8 F 04/29/23 14:01 Pulse Rate 66 04/29/23 14:01 Respiratory Rate 18 04/29/23 14:01 Blood Pressure 197/100 H 04/29/23 14:01 Pulse Oximetry 9
[2023-04-29 17:15] VITALS: BP 144/87; PULSE 90; RESP 16; O2SAT 100
== END 2023-04-29 17:15 | disposition home or self-care (01) ==
PROVIDERS: Emergency Provider Emergency Medicine; PCP Family Medicine
DX: R33.9 Retention of urine, unspecified (principal); G20.A1 Parkinson's disease without dyskinesia, without mention of fluctuations; E78.00 Pure hypercholesterolemia, unspecified; K21.9 Gastro-esophageal reflux disease without esophagitis; M19.012 Primary osteoarthritis, left shoulder; M17.12 Unilateral primary osteoarthritis, left knee; H91.90 Unspecified hearing loss, unspecified ear
CPT/HCPCS: 36415; 51702; 80053; 81001; 85025; 99283

== ENCOUNTER 2024-08-10 08:35 | Outpatient (CLI) | payer MEDICARE, SELFPAY ==
--- NOTE | ~2024-08-10 | XR_ITS ---
XR knee LT min 4V Ordering provider: Jatinder Graves MD History: . CHRONIC LT KNEE PAIN WORSEING [id number] . Comparison: July 31, 2023 FINDINGS: BONES: No acute fracture or dislocation. JOINT SPACES: Severe narrowing of the medial compartment. Marginal osteophytes in the knee and patell a. SOFT TISSUES: Normal. IMPRESSION: No acute osseous abnormality left knee. Severe osteoarthritic changes. Reviewed, dictated and finalized at location A.
--- NOTE | 2024-08-10 08:54 | ECG_ITS ---
Test Date: 2024-08-10 09:13:29 Measurements Intervals [place] Rate: 67 P: 60 [place]: 154 QRS: 19 QRSD: 121 T: 8 QT: 400 QTc: 425 Interpretive Statements SINUS RHYTHM RIGHT BUNDLE BRANCH BLOCK [120+ ms QRS DURATION, UPRIGHT V1, 40+ ms S IN I/aVL/V4/V5/V6] POSSIBLE ANTERIOR MYOCARDIAL INFARCTION , OF INDETERMINATE AGE [30 ms Q WAVE IN V3/V4, OR R < 0.2 mV IN V4] No previous ECG available for comparison Electronically Signed On 08-10-2024 13:16:43 CDT by Josef Fitzgerald M.D.
[2024-08-10 08:58] LABS: Basophils Absolute Auto 0.02 K/mm3 (0.00-0.10); Basophils Percent Auto 0.3 % (0.0-1.0); Eosinophils Absolute Auto 0.26 K/mm3 (0.02-0.50); Eosinophils Percent Auto 4.5 % (1.0-6.0); Hematocrit 45.4 % (37.0-46.0); Hemoglobin 14.4 g/dL (12.4-15.3); Immature Granulocyte Absolute 0.01 K/mm3 (0.00-0.00); Immature Granulocyte Percent A 0.2 % (0.0-0.0); Mean Corpuscular HGB Conc 31.7 g/dL (32-36); Mean Corpuscular Volume 88.3 fL (78.0-102.0); Mean Platelet Volume 9.2 fl (8.7-11.0); Monocytes Absolute Auto 0.37 K/mm3 (0.10-0.90); Monocytes Percent Auto 6.4 % (2.0-11.0); Neutrophils Percent Auto 62.6 % (50.0-70.0); Platelet Count Result 225 K/mm3 (150-420); Red Blood Count 5.14 M/mm3 (4.70-6.10); Red Cell Distribution Width 14.5 % (11.6-14.4); White Blood Count 5.8 K/mm3 (4.8-10.8)
[2024-08-10 09:28] LABS: Anion Gap 5 mmol/L (4-12); Blood Urea Nitrogen 20 mg/dL (9-20); Carbon Dioxide 27 mmol/L (22-30); Chloride 106 mmol/L (98-107); Estimated Glomerular Filt Rate > 60; Glucose 88 mg/dL (65-110); Osmolality Calculated 287 mOsm/kg (285-295); Potassium 4.3 mmol/L (3.4-5.0); Sodium 138 mmol/L (137-145)
[2024-08-10 18:09] LABS: Add Urine Microscopic? YES; Appearance Urine Clear (Clear); Bilirubin Urine Negative (Negative); Blood Urine Negative (Negative); Color Urine Yellow (Yellow); Glucose Urine UA Negative (Negative); Ketones Urine Trace (Negative); Leukocyte Esterase Ur Negative LEU/UL (Negative); Nitrate Urine Negative (Negative); Protein Urine Trace (Negative); Specific Grav Ur >= 1.030 (1.010-1.020); Urobilinogen Urine 0.2 mg/dL (0.2-1.0)
[2024-08-10 18:15] LABS: Bacteria Urine Trace /hpf; Mucus Urine Few /lpf; RBC Urine 0-2 /hpf (0-2); Squamous Epithelial Cell Urine Rare /hpf (Few); WBC Urine 0-3 /hpf (0-3)
== END 2024-08-10 08:36 | disposition home or self-care (01) ==
LOC: CHSLAB 08:38
PROVIDERS: PCP Family Medicine; Visit Provider Orthopaedic Surgery
DX: I10 Essential (primary) hypertension (principal); R53.83 Other fatigue; E78.5 Hyperlipidemia, unspecified; I25.118 Atherosclerotic heart disease of native coronary artery with other forms of angina pectoris; M25.562 Pain in left knee; I45.10 Unspecified right bundle-branch block
CPT/HCPCS: 36415; 73564; 80048; 81001; 85025; 93005

== ENCOUNTER 2024-08-28 07:07 | Emergency (ER) | payer MEDICARE, SELFPAY ==
[2024-08-28 07:13] VITALS: BP 161/111; PULSE 77; RESP 21; TEMP 36.4; O2SAT 98
--- NOTE | 2024-08-28 07:43 | ED_ITS ---
HPI - Male Genitourinary General Chief complaint: Urogenital-Male Stated complaint: urinary retention Time Seen by Provider: 08/28/24 07:11 History of Present Illness HPI Narrative: Patient is a 79-year-old male who presents ER with urinary retention. Patient requires self catheterization at home and neither he nor his could get a catheter to pass. He reports he has had increased difficulty with catheterization over last couple days. He is having some lower abdominal discomfort due to urinary retention. No fevers or chills or sweats. No other concerns. Related Data Allergies Allergy/AdvReac Type Severity Reaction Status Date / Time NSAIDS (Non-Steroidal Allergy Intermediate Unknown Verified 08/10/24 09:19 Anti-Inflamma metoclopramide Allergy Unknown Unknown Verified 08/10/24 09:19 Review of Systems Review of Systems: All systems reviewed & are unremarkable except as noted in HPI and below Constitutional: Constitutional: Reports no additional constitutional complaints Cardiovascular: Cardiovascular: Reports no additional cardiovascular complaints Respiratory: Respiratory: Reports no additional respiratory complaints Genitourinary: Genitourinary: Reports no additional male genitourinary complaints [facility] Past Medical History Medical History Left knee DJD Effusion of knee joint Fatigue Ganglion cyst of dorsum of right wrist Urinary frequency Constipation Nausea Separation of AC joint GERD (gastroesophageal reflux disease) 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 Hyperlipidemia, unspecified Spondylolysis, thoracolumbar region Unequal limb length (acquired), right femur Unspecified hearing loss, unspecified ear Vision abnormalities DJD (degenerative joint disease) of knee Arthritis Vision loss High cholesterol Surgical History Surgical History History of cataract surgery History of meniscectomy of left knee x2 per patient report History of shoulder surgery Left Shoulder AC Joint Separation Repair History of surgery Right Knee Fusion 5 Previous Surgical Procedures RLE Family History Family History Father Arthritis Hypertension Mother Hypertension Social History Social History Smoking status: Never smoker Alcohol intake: current Drinks per week: 2 Substance use: never Substance use type: does not use Do You Feel Safe in your Home?: Yes Lack of Transportation: No Lack of Food: Never True Current Housing: I Have Housing Concerned About Future Housing: No Difficulty Paying Gas/Electric Bills: No Difficulty Paying for Meds: No Currently Unemployed: No Education: Associate Degree Difficulty w/ Childcare or Family Care: No Living arrangements: with family Occupation/Education: retired 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 HEAD: Normocephalic, atraumatic. ENT: Mucous membranes moist. CHEST: Clear to auscultation. No respiratory distress. HEART: Regular rate and rhythm. N Normal peripheral pulses. ABDOMEN: Soft, mild suprapubic discomfort, nondistended. EXTREMITIES: Normal range of motion. No edema. SKIN: Warm, dry, no rash. NEURO: Alert and oriented x3. PSYCH: Normal mood and affect. Course Course Emergency Course: Guevara placed. Urine with evidence of infection. Discharged on oral antibiotic. Follow-up with urology. Vital Signs Vital signs: Vital Signs Temperature 97.5 F L 08/28/24 07:13 Pulse Rate 77 08/28/24 07:13 Respiratory Rate 21 H 08/28/24 07:13 Blood Pressure 161/111 H 08/28/24 07:13 Pulse Oximetry 98 08/28/24 07:13 Oxygen Delivery Room Air 08/28/24 07:13 Temperature 97.5 F L 08/28/24 07:13 Pulse Rate 57 L 08/28/24 08:46 Respiratory Rate 21 H 08/28/24 08:46 Blood Pressure 128/71 08/28/24 08:46 Pulse Oximetry 97 08/28/24 08:46 Oxygen Delivery Room Air 08/28/24 07:13 MDM - Male Genitourinary Lab Data Labs: Lab Results 08/28/24 Range/Units 07:40 Urine Color Yellow (Yellow) Urine Appearance Clear (Clear) Urine pH 5.5 (5.0-9.0) Ur Specific [place] 1.023 (1.001-1.035) Urine Protein Trace (Negative) mg/dL Urine Glucose (UA) Negative (Negative) mg/dL Urine Ketones Trace H (Negative) mg/dL Ur Blood (Man) 1+ H (Negative) Urine Nitrate Positive H (Negative) Urine Bilirubin Negative (Negative) Urine Urobilinogen 0.2 (<2.0) mg/dL Leukocyte Esterase Rfl 2+ H (Negative) KEM/UL Urine RBC 11-20 H (0-2) /hpf Urine WBC 21-50 H (0-3) /hpf Ur Squamous Epith Cells None seen (Few) /hpf Urine Bacteria 1+ H /hpf Urine Casts 0-2 Urine Yeast (Budding) Present H (None) /hpf Discharge Plan Discharge Clinical Impression: Acute urinary retention, Acute UTI Patient Disposition: Home Condition: Stable Instructions: Antibiotic Form, Urinary Retention in Men (ED), Urinary Tract Infection in Men (ED) Additional Instructions: You should return to the emergency department if you develop severe nausea and vomiting and are unable to keep liquids down, if you develop severe back/flank or stomach pain, or if your symptoms are not clearly improving at home. Patient Language: Romansh Prescriptions: New cefuroxime axetil 500 mg tablet 500 mg PO BID Qty: 14 0RF tamsulosin 0.4 mg capsule 0.4 mg PO DAILY Qty: 7 0RF No Action sildenafil [Viagra] 100 mg tablet 100 mg PO DAILY PRN (Reason: sexual activity) Qty: 30 3RF Rx Instructions: administer 30 minutes to 4 hours before activity sucralfate [Carafate] 1 gram tablet 1 g PO Q4-6H PRN (Reason: ulcer pain) Qty: 100 3RF uqvovfylv-dtnhroct-nrasfuefqv [Stalevo 100] 25-100-200 mg tablet 1 tablet PO TID Qty: 270 3RF weousfftl-dikhpblw-qryikojkbt 25-100-200 mg tablet 2 tablet PO TID Qty: 540 1RF ezetimibe [Zetia] 10 mg tablet 10 mg PO DAILY Qty: 90 1RF pantoprazole 40 mg tablet,delayed release (DR/EC) 40 mg PO DAILY Qty: 90 1RF sulfamethoxazole-trimethoprim [Bactrim DS] 800-160 mg tablet 1 tablet PO Q12H Qty: 14 1RF (DME) Stair Lift See Rx Instructions .Route .MEDSUPPLY Qty: 1 0RF Rx Instructions: As directed Follow-up/Referrals: Dez Greenfield MD [Physician] - 1 Week Sam Reynaga MD [Primary Care Provider] - 1 Week
[2024-08-28 08:01] LABS: Add Urine Microscopic? YES; Appearance Urine Clear (Clear); Bacteria Urine 1+ /hpf; Bilirubin Urine Negative (Negative); Blood Urine 1+ (Negative); Budding Yeast Urine Present /hpf; Color Urine Yellow (Yellow); Glucose Urine UA Negative (Negative); Ketones Urine Trace mg/dL (Negative); Leukocyte Esterase Ur 2+ LEU/UL (Negative); Nitrate Urine Positive (Negative); Non Pathogenic Casts 0-2; Protein Urine Trace mg/dL (Negative); Specific Grav Ur 1.023 (1.001-1.035); Squamous Epithelial Cell Urine None Seen /hpf (Few); Urobilinogen Urine 0.2 mg/dL (<2.0); WBC Urine 21-50 /hpf (0-3); pH Urine 5.5 (5.0-9.0)
[2024-08-28 08:46] VITALS: BP 128/71; PULSE 57; RESP 21; O2SAT 97
[2024-08-28 09:20] VITALS: BP 128/71; PULSE 56; RESP 19; O2SAT 96
== END 2024-08-28 09:21 | disposition home or self-care (01) ==
PROVIDERS: Emergency Provider Emergency Medicine; PCP Family Medicine
DX: N39.0 Urinary tract infection, site not specified (principal); R33.9 Retention of urine, unspecified; I25.118 Atherosclerotic heart disease of native coronary artery with other forms of angina pectoris; E78.00 Pure hypercholesterolemia, unspecified; K21.9 Gastro-esophageal reflux disease without esophagitis; M17.12 Unilateral primary osteoarthritis, left knee; Z98.49 Cataract extraction status, unspecified eye; Z79.899 Other long term (current) drug therapy
CPT/HCPCS: 51702; 81001; 87086; 99283

== ENCOUNTER 2024-09-10 07:55 | Outpatient (CLI) | payer MEDICARE, SELFPAY ==
--- NOTE | ~2024-09-10 | NM_ITS ---
EXAMINATION: NM adal stress w perfusion DATE: 09/10/2024 10:54 INDICATION: Atherosclerotic heart disease TECHNIQUE: Rest images were obtained following intravenous administration of 10.0 mCi Tc99m tetrofosm in (Myoview). The patient was infused intravenously with Lexiscan (Regadenoson). Then, 32.3 mCi Tc99m tetrofosmin (Myoview) was administered intravenously, and stress images were obtained. Data was alistair nstructed into short axis and horizontal and vertical long axis SPECT images. Gated SPECT images were also obtained. COMPARISON: None. FINDINGS: There is no definite reversible or fixed perfusion abnormality to suggest ischemia or infar ction. There is normal left ventricular chamber size, wall motion and ejection fraction. Left ventr icular ejection fraction measures >70%. IMPRESSION: 1. Normal myocardial perfusion at rest and during stress. 2. Left ventricular ejection fraction measuring >70%. Reviewed, dictated and finalized at location A.
--- NOTE | 2024-09-10 08:29 | EST_ITS ---
Patient Info Name: Prabhu Rodriges Age: 79 years : 1945 Gender: Male Ht: 70,174 in Wt: 174 lbs BSA: 30.68 m2 Exam Date: 09/10/2024 8:29 AM Patient Status: O Admit Date: 09/10/2024 Exam Type: CA stress adal w NM A regadenoson stress test was performed. Staff Referring Physician: Tina Epps Attending Provider: Tina Epps Exercise Technologist: Jayde Mcfarland Exercise Physician: Godfrey Bird DO Summary 1. 1. Negative lexiscan stress test for ischemic ST changes by ECG criteria. 2. 2. Baseline hypertension. 3. 3. Nuclear scan to follow and will be reported separately. Please correlate with it. 4. 4. Patient informed of the above results. Protocol: Lexiscan Stress ECG Details Stage: REST Duration (min): 2 min : 32 sec HR (bpm): 68 SBP (mmHg): 158 DBP (mmHg): 84 Stage: REST Duration (min): 5 min : 47 sec HR (bpm): 67 SBP (mmHg): 158 DBP (mmHg): 84 Stage: STAGE 1 Duration (min): 0 min : 59 sec HR (bpm): 92 SBP (mmHg): 159 DBP (mmHg): 77 Stage: RECOVERY Duration (min): 1 min : 0 sec HR (bpm): 106 SBP (mmHg): 159 DBP (mmHg): 77 Stage: RECOVERY Duration (min): 2 min : 0 sec HR (bpm): 100 SBP (mmHg): 159 DBP (mmHg): 77 Stage: RECOVERY Duration (min): 3 min : 0 sec HR (bpm): 97 SBP (mmHg): 165 DBP (mmHg): 80 Stage: RECOVERY Duration (min): 3 min : 15 sec HR (bpm): 94 SBP (mmHg): 165 DBP (mmHg): 80 Rest HR: 67 bpm Peak HR: 107 bpm Rest Sys BP: 158 mmHg Peak Sys BP: 165 mmHg Max Pred HR: 142 bpm % Max Pred HR: 75 % Target HR: 121 bpm Max RPP: 17,655 bpm*mmHg Termination Reason: Completed protocol Cardiac Symptoms: Shortness of breath Total Time: 1 min : 0 sec Rest Moeller BP: 84 mmHg Peak Moeller BP: 80 mmHg Total Dose: 0.4 mg Resting ECG Sinus rhythm, RBBB. Stress ECG No ST changes. Arrhythmias None. Report Signatures
== END 2024-09-10 07:56 | disposition home or self-care (01) ==
PROVIDERS: PCP Family Medicine; Visit Provider Nurse Practitioner Family
DX: I25.118 Atherosclerotic heart disease of native coronary artery with other forms of angina pectoris (principal)
CPT/HCPCS: 78452; 93017; A9502; J2785

== ENCOUNTER 2024-10-26 12:50 | Outpatient (CLI) | payer MEDICARE, SELFPAY ==
[2024-10-26 15:53] LABS: Hematocrit 47.9 % (42.0-52.0); Hemoglobin 15.3 g/dL (14.0-18.0); Immature Granulocyte Percent A 0.4 % (0-0.5); Lymphocytes Absolute Auto 1.60 K/mm3 (0.9-3.2); Mean Corpuscular HGB Conc 31.9 g/dl (32-36); Mean Corpuscular Hemoglobin 28.3 pg (26-34); Mean Corpuscular Volume 88.5 fl (80-100); Nucleated Red Blood Cells Absolute Auto 0.000 K/mm3 (0.0-0.012); Nucleated Red Blood Cells Perc 0.0 % (0.0-0.2); Platelet Count Result 252 k/mm3 (150-375); Red Blood Count 5.41 M/mm3 (4.6-6.20); White Blood Count 8.1 K/mm3 (4.5-10.0)
[2024-10-26 15:55] LABS: Appearance Urine Clear (Clear); Glucose Urine UA Negative (Negative); Leukocyte Esterase Ur Negative LEU/UL (Negative); Nitrate Urine Negative (Negative); Specific Grav Ur 1.021 (1.001-1.035)
[2024-10-26 16:04] LABS: INR 1.0; Prothrombin Time 13.2 Seconds (11.1-14.7)
[2024-10-26 16:05] LABS: Hemoglobin A1C 5.6 % (<5.7); Partial Thromboplastin Time 29.8 Seconds (22.3-36.8)
[2024-10-26 16:20] LABS: Add Urine Microscopic? NO; Albumin Level 4.7 g/dL (3.5-5.1); Anion Gap 12 mmol/L (4-12); Blood Urea Nitrogen 26 mg/dL (9-20); Calcium 10.0 mg/dL (8.4-10.2); Carbon Dioxide 23 mmol/L (22-30); Chloride 105 mmol/L (98-107); Estimated Glomerular Filt Rate > 60; Glucose 96 mg/dL (65-110); Potassium 4.3 mmol/L (3.4-5.0); Sodium 140 mmol/L (137-145)
[2024-10-26 17:13] LABS: MRSA (PCR) NOT DETECTED (NOT DETECTE)
== END 2024-10-26 12:51 | disposition home or self-care (01) ==
PROVIDERS: PCP Family Medicine; Visit Provider Orthopaedic Surgery
DX: Z01.812 Encounter for preprocedural laboratory examination (principal); M17.12 Unilateral primary osteoarthritis, left knee
CPT/HCPCS: 80048; 80307; 81003; 82040; 83036; 85025; 85610; 85730; 87641

== ENCOUNTER 2024-11-02 08:29 | Outpatient (CLI) | payer MEDICARE, SELFPAY ==
--- NOTE | ~2024-11-02 | XR_ITS ---
XR knee LT min 4V 11/02/2024 08:57 Indication: Left knee pain Procedure: 4 views left knee Comparison: Comparison to multiple prior studies sequentially, with oldest reviewed study dated 09/2021. Findings: Severe tricompartment osteoarthritis of the left knee with lateral subluxation of the tibia with respect to the femur. There is mild varus angulation. No acute fracture or traumatic malalignme nt. There is ossification the medial collateral ligament. There is chondrocalcinosis. Impression: 1: Severe tricompartment osteoarthritis of the left knee. Reviewed, dictated and finalized at location A. Impression: 1: Severe tricompartment osteoarthritis of the left knee.
== END 2024-11-02 08:30 | disposition home or self-care (01) ==
PROVIDERS: PCP Family Medicine; Visit Provider Orthopaedic Surgery
DX: M25.562 Pain in left knee (principal); M17.12 Unilateral primary osteoarthritis, left knee
CPT/HCPCS: 73564

== ENCOUNTER 2024-11-09 00:43 | Day surgery (SDC) | payer MEDICARE, SELFPAY ==
[2024-10-26 14:09] VITALS: BP 164/89; PULSE 83; RESP 16; TEMP 37.1; O2SAT 96; BMI 27.7
--- NOTE | 2024-10-26 14:38 | PC.NURSE ---
Report to the Outpatient Waiting Room, entrance under the green pavilion located off [facility], at time _6:00AM____ on date __11/09/24___. Planned Procedure Time: __7:30AM____.? Time changes happen often and if your time is changed the preop area will call you the afternoon before. - You and your visitor will be asked to self-screen and do not enter if you have any COVID symptoms. Please call surgeon if you need to reschedule. - A mask is optional within the hospital at this time. Patients may have clear liquids (water, carbonated beverages, clear teas, apple juice) until 3 hours prior to surgery (4:30AM) with a maximum of 20 ounces. - No food from midnight until time of surgery and no smoking, or chewing tobacco (or any form of nicotine). No chewing gum, candy or mints. Take only the following medications with a SIP of water on the morning of surgery: ____CARBIDOPA-LEVODOPA, NITROFURANTOIN DO NOT STOP ANY OF YOUR OTHER PRESCRIPTION MEDICATIONS PRIOR TO SURGERY EXCEPT THE FOLLOWING Hold all vitamins and supplements for 3 days per anesthesiologist. Medications to discontinue per physician NONE Date to take last dose Please no make-up, nail [place], hairspray, perfume, deodorant, or body powder the day of surgery.? No jewelry (including any body piercings) or valuables the day of surgery, leave them at home.? Please take a shower or bath the night before, or the morning of, surgery with an antibacterial soap.? Wear comfortable, loose fitting clothing.? - Jewelry must be removed prior to entering the operating room.? Rings and piercings that are not removed may be cut off. - The hospital will not accept responsibility for valuables.? - Please leave all valuables, including medications, at home the day of surgery. If you are going home after surgery, a licensed driver messenger must drive you home.? - NO public transportation without another adult if you receive anesthesia. - We recommend that an adult stay with you for 24 hours following discharge. - We also recommend that you do not drive, make important decision, drink alcoholic beverages, or take any drugs that were not prescribed by your health care provider for at least 24 hours after your discharge time. Follow any additional instructions given to you from your surgeon. Telephone instructions given to ___PATIENT & DAUGHTER and asked if any additional questions and then verbalized understanding. Patient advised to call surgeon office or pre surgery nurse liaison [phone] if any additional questions.
[2024-11-09] VITALS (13 sets, daily range): BP systolic 131–163; BP diastolic 74–96; PULSE 78–105; RESP 10–25; TEMP 36.2–36.9; O2SAT 94–99; BMI 28.3
--- NOTE | ~2024-11-09 | XR_ITS ---
EXAMINATION: [id number] DATE: 11/09/2024 10:16 INDICATION: Postoperative evaluation following left total knee arthroplasty. TECHNIQUE: Anteroposterior and lateral views of the left knee were obtained. COMPARISON: None. FINDINGS: Left total knee arthroplasty without patellar resurfacing appears well seated and in near anatomic alignment. No fractures identified. Anterior skin niecy and expected postoperative subcutaneous and intra-articular gas. IMPRESSION: 1. Left total knee arthroplasty, negative for postoperative purposes. Reviewed, dictated and finalized at location A.
[2024-11-09] MEDS: LACTATED RINGERS 1,000 ML 30 ML IV CONT ×2 (06:30→10:00)
[2024-11-09] MEDS: ACETAMINOPHEN 500 MG TABLET 1000 MG PO (06:45)
[2024-11-09] MEDS: TRANEXAMIC ACID 1,000MG/ISO100 1,000 MG/100 ML BAG 200 MG IVPB (06:45)
--- NOTE | 2024-11-09 07:07 | WPDHPUPDATE1 ---
History and Physical Update Update Date/Time: 11/09/24 07:07 History and Physical has been reviewed, including an updated exam of the patient. There are NO changes in the patient's condition. Risks, benefits, and alternatives have been discussed and questions answered. Patient agrees to proceed with procedure.
--- NOTE | 2024-11-09 07:08 | WPDHPUPDATE1 ---
History and Physical Update Update Date/Time: 11/09/24 07:08 History and Physical has been reviewed, including an updated exam of the patient. There are NO changes in the patient's condition. Risks, benefits, and alternatives have been discussed and questions answered. Patient agrees to proceed with procedure.
--- NOTE | 2024-11-09 07:14 | WPDANESEPPF ---
Anes - Initial Pre Proc Eval Procedure: Operation Date: 11/09/24 07:30 Proposed Procedures p Left Total Knee Arthroplasty - Jatinder Graves MD Date/Time: 11/09/24 07:14 Surgeon: Jatinder Graves MD Pre Op Diagnosis: left knee djd Patient Data Age: 79 Gender: M Height: 1.78 m Weight: 87.6 kg Last Vital Signs Temp 98.8 F 10/26/24 14:09 Pulse 83 10/26/24 14:09 Resp 16 10/26/24 14:09 BP 164/89 H 10/26/24 14:09 Pulse Ox 96 10/26/24 14:09 O2 Del Method Room Air 10/26/24 14:09 Allergies Allergy/AdvReac Type Severity Reaction Status Date / Time metoclopramide Allergy Unknown Unknown,PSY Verified 11/09/24 07:14 CHOSIS NSAIDS (Non-Steroidal Allergy Unknown Unknown Verified 11/09/24 07:14 Anti-Inflamma (NSAIDS (Non-Steroidal Anti-Inflammatory Drug)) Home Medications ?Medication ?Instructions ?Recorded ?Confirmed ?Type sucralfate 1 gram tablet (Carafate) 1 g PO Q4-6H PRN ulcer pain #100 04/27/21 11/02/24 Rx tabs carbidopa 25 mg-levodopa 100 1 tablet PO TID #270 tabs 07/15/22 11/02/24 Rx mg-entacapone 200 mg tablet (Stalevo 100) carbidopa 25 mg-levodopa 100 2 tablet PO TID #540 tabs 12/04/23 11/02/24 Rx mg-entacapone 200 mg tablet Stair Lift #1 ea 08/17/24 11/02/24 Rx tamsulosin 0.4 mg capsule 0.4 mg PO DAILY #7 caps 08/28/24 11/02/24 Rx ezetimibe 10 mg tablet (Zetia) 10 mg PO DAILY #90 tabs 10/19/24 11/02/24 Rx pantoprazole 40 mg tablet,delayed 40 mg PO DAILY #90 tabs 10/19/24 11/02/24 Rx release finasteride 5 mg tablet 5 mg PO DAILY 10/26/24 11/02/24 History nitrofurantoin 100 mg PO QAM 10/26/24 11/02/24 History monohydrate/macrocrystals 100 mg capsule chlorhexidine gluconate 4 % 1 applic topical ONCE #237 mL 11/02/24 11/02/24 Rx topical liquid (Hibiclens) Laboratory Tests 11/09/24 06:38 Blood Type Pending Antibody Screen Pending Patient hx anesthesia problems: none Family hx anesthesia problems: none Results Review: All pre-operative results and documents have been reviewed as part of the pre-operative evaluation. 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 Hyperlipidemia, unspecified Spondylolysis, thoracolumbar region Unequal limb length (acquired), right femur Unspecified hearing loss, unspecified ear Vision abnormalities DJD (degenerative joint disease) of knee Arthritis Vision loss High cholesterol Surgical History Surgical History History of cataract surgery History of meniscectomy of left knee x2 per patient report History of shoulder surgery Left Shoulder AC Joint Separation Repair History of surgery Right Knee Fusion 5 Previous Surgical Procedures RLE Family History Family History Father Arthritis Hypertension Mother Hypertension Social History Social History Smoking status: Never smoker Alcohol intake: current Drinks per week: 2 Substance use: never Substance use type: does not use Do You Feel Safe in your Home?: Yes Lack of Transportation: No Lack of Food: Never True Current Housing: I Have Housing Concerned About Future Housing: No Difficulty Paying Gas/Electric Bills: No Difficulty Paying for Meds: No Currently Unemployed: No Education: Associate Degree Difficulty w/ Childcare or Family Care: No Living arrangements: with family Additional living arrangements comments: Occupation/Education: retired 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 Stress test 09/2024 without ischemia, nml LVEF. Informed Consent: The patient's anesthetic plan and its attendant risks and benefits were discussed with the patient/family/POA. Questions were solicited and answers provided to the satisfaction of the patient/family/POA.
--- NOTE | 2024-11-09 07:15 | WPDANESPNB ---
Anes - Peripheral Nerve Block Date/Time: 11/09/24 07:15 I have discussed with the patient/family/POA the placement of a peripheral nerve block for post-operative pain management, including associated risks, benefits, complications, and side effects. Alternative methods of post-operative analgesia were detailed. Questions were solicited and answers provided to the satisfaction of the patient/family/POA. Time-Out: A pre-procedural Time-Out was completed immediately before starting the procedure and confirmed: Patient Identification, Site, Procedure, Patient Position and the Availability of Requisite Equipment. Clinical Indications: Acute post-operative pain management requested by the operative surgeon. Nerve Block Insertion Note Anes-nerve block: adductor canal left Patient position: supine Skin prep: chlorhexidine Needle: 22 gauge, stimulating, insulated echogenic needle. Needle length: 80 mm Technique: ultrasound Injectate: other (Bupiv 0.5% 15 mls. ) Observations: tolerated well Complications: none Procedure start time:: 720 Procedure end time:: 726
[2024-11-09] MEDS: ceFAZolin 2 GM in SODIUM CHLORIDE 0.9% IV 50 ML 100 ML IVPB ×2 (07:54→16:12)
[2024-11-09] MEDS: SODIUM CHLORIDE 0.9% IV 38.7 ML, MORPHINE SULFATE INJ (*CRX) 2 MG, ROPivacaine HCL 1% 2... INFILTRATE (08:18)
[2024-11-09] MEDS: TRANEXAMIC ACID 1,000 MG/10 ML AMPUL 1000 MG IV PUSH (09:24)
--- NOTE | 2024-11-09 09:45 | P.OP_ITS ---
Procedure Note - Detailed Date of Procedure 11/09/24 Pre-op Diagnosis left knee djd Post-op Diagnosis Same Procedure Performed L TKA Surgeon Jatinder Graves MD Anesthesia General Description of Procedure THE LEFT KNEE WAS PREPPED AND DRAPED IN THE STERILE FASHION. THERE WAS A 20 DEGREE FLEXION CONTRACTURE. A MIDLINE SKIN INCISION WAS MADE. A MEDIAL PARAPATELLAR ARTHROTOMY WAS MADE. THE PATELLA WAS EVERTED. AN INTRAMEDULLARY ESME WAS PLACED IN THE FEMUR. A DISTAL FEMORAL CUT WAS MADE IN 5 DEGREES OF THEODORA MIRZA REMOVING APPROXIMATELY 11 MM OF BONE FROM THE DISTAL FEMUR. THE FEMUR WAS SIZED TO 72.5. A 72.55 FEMORAL CUTTING BLOCK WAS PLACED IN 3 DEGREES OF EXTERNAL ROTATION AND IN ALIGNMENT WITH ARACELI'S LINE AND THE TRANSEPICONDYLAR AXIS. ANTERIOR POSTERIOR AND CHAMFER CUTS WERE MADE. THE CUTS WERE EXCELLENT. NEXT AN INTRAMEDULLARY CUTTING GUIDE WAS PLACED IN THE TIBIA. A TRANS TIBIAL CUT WAS MADE ALONG THE LONG AXIS OF THE TIBIA. APPROXIMATELY 10 MM OF BONE WAS REMOVED FROM THE HIGH SIDE OF THE TIBIA. THE TIBIA WAS THEN PLANED TO A SMOOTH SURFACE. POSTERIOR FEMORAL OSTEOPHYTES WERE REMOVED FROM THE FEMORAL CONDYLES. AN 83 TIBIAL TRIAL WAS PLACED IN ALIGNMENT WITH THE 1/3 MEDIAL ASPECT OF THE TIBIAL TUBERCLE. THEN A 72.5 FEMORAL TRIAL COMPONENT WAS PLACED. BOTH HAD EXCELLENT FITS. EVENTUALLY A 13 MM POLYETHYLENE TRIAL COMPONENT WAS PLACED. THE KNEE WAS TAKEN THROUGH A RANGE OF MOTION. THE KNEE CAME OUT TO FULL EXTENSION. THERE WAS NO ABNORMAL TILT TO THE PATELLA. THERE WAS GOOD A/P AND VARUS/VALGUS STABILITY. THERE WAS NO EXCESSIVE ROLL BACK WITH FLEXION. THE TRIAL COMPONENTS WERE REMOVED. THEN A 72.5 FEMORAL COMPONENT AND 83 TIBIAL COMPONENT WITH A 13 POLYETHYLENE COMPONENT WERE CEMENTED INTO PLACE. ONCE THE CEMENT WAS HARD THE KNEE WAS TAKEN THROUGH A ROM AGAIN AND FOUND TO BE STABLE WITH NO PATELLA TILT NO EXCESSIVE ROLL BACK WITH FLEXION AND GOOD STABILITY WITH COMPLETE AND FULL EXTENSION. THE KNEE WAS IRRIGATED WITH STERILE BETADINE AND WATER FOR ABOUT 3 MINUTES. THE BLEEDERS WERE CAUTERIZED. THE ARTHROTOMY WAS REPAIRED WITH NUMBER 1 VICRYL. THE SUB CUTANEOUS LAYER WITH 2-0 VICRYL AND THE SKIN WITH VINNY. THE WOUND WAS WASHED AND A STERILE DRESSING WAS APPLIED. PATIENT WAS EXTUBATED. Estimated Blood Loss -150.0 Pathology None sent Complications No immediate complications Condition Stable Disposition PACU
[2024-11-09] MEDS: fentaNYL CITRATE INJ (*CRX) 100 MCG/2 ML VIAL 25 MCG IV PUSH ×4 (10:23→10:36)
--- NOTE | 2024-11-09 11:24 | ADMGEN ---
This patient, Prabhu Rodriges, was admitted to [facility] Surg Room 305-02. Patient/family oriented to hospital policies and general routines including ID bracelet, bed and alarms, visiting hours, pain management, procedures, bathroom and other care routines, personal items, smoking policy, room service/diet, and visiting hours. Information on how to activate the Rapid Response Team has been discussed. Patient/Family are encouraged to report perceived risks to care and to ask questions if they do not understand what they are told or what they should do.
[2024-11-09] MEDS: oxyCODONE/ACETAMINOPHEN (*CRX) 5-325 MG TABLET 1 TABLET PO (11:40)
[2024-11-09] MEDS: CELECOXIB 200 MG CAPSULE PO ×2 (11:41→16:12)
[2024-11-09] MEDS: EZETIMIBE 10 MG TABLET PO (11:41)
[2024-11-09] MEDS: FAMOTIDINE 20 MG TABLET PO ×2 (11:41→20:33)
[2024-11-09] MEDS: ASPIRIN 325 MG ENTERIC TABLET PO ×2 (11:41→20:35)
[2024-11-09] MEDS: FINASTERIDE 5 MG TABLET PO (11:41)
[2024-11-09] MEDS: TAMSULOSIN HCL 0.4 MG CAPSULE PO (11:41)
[2024-11-09] MEDS: SENNA/DOCUSATE SODIUM TABLET 2 TAB PO ×2 (11:41→16:13)
[2024-11-09] MEDS: SODIUM CHLORIDE 0.9% IV 1,000 ML 125 ML IV CONT (11:44)
[2024-11-09] MEDS: NITROFURANTOIN MONOHYD MACROCR 100 MG CAP PO (12:12)
[2024-11-09] MEDS: CARBIDOPA/LEVODOPA 25/100 MG TABLET 2 TABLET PO ×2 (12:12→16:12)
[2024-11-09] MEDS: ENTACAPONE 200 MG TABLET 400 MG PO (12:36)
[2024-11-09] MEDS: ONDANSETRON INJ 4 MG/2 ML VIAL IV PUSH ×3 (16:47→20:35)
[2024-11-10] MEDS: ceFAZolin 2 GM in SODIUM CHLORIDE 0.9% IV 50 ML 100 ML IVPB ×2 (00:03→08:05)
[2024-11-10 03:26] VITALS: BP 135/72; PULSE 84; RESP 16; TEMP 36.3; O2SAT 95
[2024-11-10 06:01] LABS: Hematocrit 39.1 % (42.0-52.0); Hemoglobin 12.3 g/dL (14.0-18.0); Immature Granulocyte Percent A 0.4 % (0-0.5); Lymphocytes Absolute Auto 1.60 K/mm3 (0.9-3.2); Mean Corpuscular HGB Conc 31.5 g/dl (32-36); Mean Corpuscular Hemoglobin 28.5 pg (26-34); Mean Corpuscular Volume 90.5 fl (80-100); Nucleated Red Blood Cells Absolute Auto 0.000 K/mm3 (0.0-0.012); Nucleated Red Blood Cells Perc 0.0 % (0.0-0.2); Platelet Count Result 180 k/mm3 (150-375); Red Blood Count 4.32 M/mm3 (4.6-6.20); White Blood Count 9.4 K/mm3 (4.5-10.0)
[2024-11-10 06:25] LABS: Anion Gap 5 mmol/L (4-12); Blood Urea Nitrogen 24 mg/dL (9-20); Calcium 8.7 mg/dL (8.4-10.2); Carbon Dioxide 24 mmol/L (22-30); Chloride 104 mmol/L (98-107); Estimated CRCL calculation 61 ml/min; Estimated Glomerular Filt Rate > 60; Glucose 104 mg/dL (65-110); Potassium 4.2 mmol/L (3.4-5.0); Sodium 133 mmol/L (137-145)
[2024-11-10] MEDS: CELECOXIB 200 MG CAPSULE PO (08:04)
[2024-11-10] MEDS: TAMSULOSIN HCL 0.4 MG CAPSULE PO (08:04)
[2024-11-10] MEDS: ASPIRIN 325 MG ENTERIC TABLET PO (08:04)
[2024-11-10] MEDS: NITROFURANTOIN MONOHYD MACROCR 100 MG CAP PO (08:04)
[2024-11-10] MEDS: EZETIMIBE 10 MG TABLET PO (08:04)
[2024-11-10] MEDS: FAMOTIDINE 20 MG TABLET PO (08:04)
[2024-11-10] MEDS: FINASTERIDE 5 MG TABLET PO (08:04)
[2024-11-10] MEDS: SENNA/DOCUSATE SODIUM TABLET 2 TAB PO (08:05)
[2024-11-10] MEDS: CARBIDOPA/LEVODOPA 25/100 MG TABLET 2 TABLET PO (11:48)
[2024-11-10 12:53] VITALS: BP 131/70; PULSE 104; RESP 18; TEMP 36.6; O2SAT 95
[2024-11-10] MEDS: oxyCODONE/ACETAMINOPHEN (*CRX) 5-325 MG TABLET 1 TABLET PO (13:22)
--- NOTE | 2024-11-10 13:42 | PM.PNORT ---
Progress Note: A&P Assessment and Plan (1) S/P total knee arthroplasty: Code(s): Z96.659 - Presence of unspecified artificial knee joint Status: Acute Assessment and Plan: POD 1 DOING WELL. OK TO DC HOME WITH HOME HEALTH. F/U IN 3 WEEKS Subjective Subjective Date/Time Seen: 11/10/24 13:42 Interval history: POD 1 DOING WELL. GOOD PROGRESS WITH PT. NO CALF PAIN Exam Extrem: Other: VSS AFEBRILE DRESSING DRY NV INTACT NEG HOMANS SIGN CALF AND THIGH SOFT NON TENDER Objective Data Vital Signs Vital Signs: Vital Signs - 24 hr 11/09/24 20:00 11/09/24 20:52 11/09/24 22:22 Temperature 36.4 C Pulse Rate 86 91 86 Respiratory Rate 20 16 20 Blood Pressure 150/88 H Pulse Oximetry 95 97 95 Oxygen Delivery Room Air Room Air Fraction of Inspired Oxygen 21 21 11/09/24 23:12 11/10/24 03:26 11/10/24 08:00 Temperature 36.2 C L 36.3 C L Pulse Rate 84 84 Respiratory Rate 16 16 Blood Pressure 135/86 135/72 Pulse Oximetry 95 95 Oxygen Delivery Room Air Fraction of Inspired Oxygen Intake/Output Intake/Output: Intake & Output 11/07/24 11/08/24 11/09/24 11/10/24 23:59 23:59 23:59 23:59 Intake Total 810 890 Output Total 200 300 Balance 610 590 Meds/Results Medications: Active Medications Generic Name Dose Route Start Last Admin Trade Name Freq PRN Reason Stop Dose Admin Acetaminophen 500 mg 11/09/24 11:08 Acetaminophen 500 Mg Tablet PO Q6H PRN Pain Rated 1-3 Aspirin 325 mg 11/09/24 11:08 11/10/24 08:04 Aspirin 325 Mg Enteric Tablet PO 325 mg Q12HR YOLI Administration Carbidopa/Levodopa 2 tablet 11/09/24 13:00 11/10/24 11:49 Carbidopa/Levodopa 25/100 Mg Tablet PO Not Given TID YOLI Celecoxib 200 mg 11/09/24 11:08 11/10/24 08:04 Celecoxib 200 Mg Capsule PO 200 mg BIDWM YOLI Administration Diazepam 5 mg 11/09/24 11:08 Diazepam (*Crx) 5 Mg Tablet PO Q8H PRN Spasms Diphenhydramine HCl 25 mg 11/09/24 11:08 Diphenhydramine Hcl Inj 50 Mg/Ml Vial IV PUSH Q6H PRN Itching Ezetimibe 10 mg 11/09/24 11:08 11/10/24 08:04 Ezetimibe 10 Mg Tablet PO 10 mg DAILY YOLI Administration Famotidine 20 mg 11/09/24 11:08 11/10/24 08:04 Famotidine 20 Mg Tablet PO 20 mg Q12HR YOLI Administration Finasteride 5 mg 11/09/24 11:08 11/10/24 08:04 Finasteride 5 Mg Tablet PO 5 mg DAILY YOLI Administration Hydromorphone HCl 1 mg 11/09/24 11:08 Hydromorphone Hcl Inj (*Crx) 1 Mg/Ml Syr IV PUSH Q2H PRN Breakthrough Pain Rated 7-10 or NPO Hydromorphone HCl 0.5 mg 11/09/24 11:08 Hydromorphone Hcl Inj (*Crx) 1 Mg/Ml Syr IV PUSH Q2H PRN Breakthrough Pain Rated 4-6 or NPO Ibuprofen 800 mg in 200 mls @ 400 mls/hr 11/09/24 11:08 Caldolor 800 Mg/200 Ml IVPB Q6H PRN Breakthrough Pain Rated 1-3 or NPO Naloxone HCl 0.1 mg 11/09/24 11:08 Naloxone Hcl 0.4 Mg/Ml Vial IV PUSH Q2M PRN Opiate Reversal Nitrofurantoin Macrocrystals 100 mg 11/09/24 11:08 11/10/24 08:04 Nitrofurantoin Monohyd Macrocr 100 Mg Cap PO 100 mg QAM YOLI Administration Ondansetron HCl 4 mg 11/09/24 11:08 11/09/24 20:35 Ondansetron Inj 4 Mg/2 Ml Vial IV PUSH 4 mg Q4H PRN Administration Nausea And Vomiting Oxycodone/Acetaminophen 1 tablet 11/09/24 11:08 11/10/24 13:22 Oxycodone/Acetaminophen (*Crx) 5-325 Mg Tablet PO 1 tablet Q4H PRN Administration Pain Rated 4-6 Oxycodone/Acetaminophen 1 tab 11/09/24 11:08 Oxycodone/Acetaminophen (*Crx) 10-325 Mg Tablet PO Q6H PRN Pain Rated 7-10 Polyethylene Glycol 17 gm 11/09/24 11:08 11/10/24 08:04 Polyethylene Glycol 3350 17 Gm Powd.Pack PO 17 gm QAM YOLI Administration Senna/Docusate Sodium 2 tab 11/09/24 11:08 11/10/24 08:05 Senna/Docusate Sodium Tablet PO 2 tab BID YOLI Administration Tamsulosin HCl 0.4 mg 11/09/24 11:08 11/10/24 08:04 Tamsulosin Hcl 0.4 Mg Capsule PO 0.4 mg DAILY YOLI Administration Radiology Results: ITS Impressions Knee X-Ray 11/09/24 10:48 IMPRESSION: 1. Left total knee arthroplasty, negative for postoperative purposes. Labs Labs: Laboratory Results - last 24 hr 11/10/24 05:16 WBC 9.4 RBC 4.32 L Hgb 12.3 L D Hct 39.1 L MCV 90.5 MCH 28.5 MCHC 31.5 L RDW 14.1 Plt Count 180 MPV 10.0 Immature Gran % (Auto) 0.4 Neut % (Auto) 73.0 Lymph % (Auto) 16.9 L Milam % (Auto) 9.3 H Eos % (Auto) 0.2 Baso % (Auto) 0.2 Lymph # (Auto) 1.60 Milam # (Auto) 0.9 H Eos # (Auto) 0.0 Baso # (Auto) 0.0 Abs Immat Gran (auto) 0.04 H Absolute Neuts (auto) 6.9 H Absolute Nucleated RBC 0.000 Nucleated RBC % 0.0 Sodium 133 L Potassium 4.2 Chloride 104 Carbon Dioxide 24 Anion Gap 5 BUN 24 H Creatinine 0.91 Estim Creat Clear Calc 61 Estimated GFR > 60 Glucose 104 Calcium 8.7
== END 2024-11-10 15:00 | disposition home health service (06) ==
LOC: ANHSURGERY 05:43 → ANH3MEDSUR 11:15
PROVIDERS: PCP Family Medicine; Visit Provider Orthopaedic Surgery
PROC: (CPT 27447; principal; 2024-11-09 07:30)
DX: M17.12 Unilateral primary osteoarthritis, left knee (principal); M25.762 Osteophyte, left knee; G89.18 Other acute postprocedural pain; K21.9 Gastro-esophageal reflux disease without esophagitis; E78.00 Pure hypercholesterolemia, unspecified; R35.0 Frequency of micturition; I25.118 Atherosclerotic heart disease of native coronary artery with other forms of angina pectoris; M47.895 Other spondylosis, thoracolumbar region; M21.751 Unequal limb length (acquired), right femur; Z98.890 Other specified postprocedural states
CPT/HCPCS: 64447; 27447; 36415; 73560; 80048; 85025; 86850; 86900; 86901; 97110; 97116; 97162; 97166; 97530; 97535; J0690; A9270; C1713; C1776; J0166; J2003; J2270; J2405; J2704; J2795; J3010; J3373; J7030; J7120

== ENCOUNTER 2024-12-10 15:57 | Outpatient (RCR) | payer MEDICARE, SELFPAY ==
--- NOTE | 2024-12-10 17:36 | OPREHPOC ---
Outpatient Therapy Plan of Care This is a Multidisciplinary Plan of Care that may contain components documented by all disciplines (PT, OT, and ST.) PT Problem 1 PT Problem #1 Knowledge Deficit PT Goal 1 Goal / Goal Update Independent and compliant with HEP. Target Visit 2 PT Problem 2 PT Problem #2 Impaired Strength PT Goal 1 Goal / Goal Update Pt to improve L hip strength to 5/5. Target Visit 12 PT Problem 3 PT Problem #3 Impaired Range of Motion PT Goal 1 Goal / Goal Update Pt to improve L knee AROM to 0-120 deg. Target Visit 12 PT Problem 4 PT Problem #4 Impaired Functional Mobility PT Goal 1 Goal / Goal Update Pt to demonstrate improved L heel strike and to reach full L knee extension during stance phase of ambulation. Pt to demonstrate adherence to proper gait sequencing with forearm crutch. Pt to report being able to ambulate 2 laps around [employer] without pain. Pt to report 10% reduction in perceived disability on LEFS. Target Visit 12
--- NOTE | 2024-12-10 17:36 | PTOPEVAL1 ---
Assessment and note entered by Zarina Orozco, PT Evaluation Information Assessment Status Evaluation ICD-10 Condition Codes (PT) Pain in left knee M25.562,Aftercare following joint replacement surgery Z47.1 Other ICD-10 Condition Codes ( Z96.659 PT) Onset 11/09/2024 Subjective Information Pt reports he got his L knee replaced on 11/09/2024 . He reports he received home therapy 2x per week and also used a CPM machine at home. He denies significant pain and feels like his biggest problem is his swelling and tightness in the knee. He also feels like his L leg is longer than his R . He ambulates using a single forearm crutch on the R side and that he's used it for 30 years after an accident caused him to get a radha placed in his R knee, and his knee is fixed in extension. Reported Pain Level Pain Score 2: Self Report Assessment PT Clinical Summary Mr. Rodriges is a 79 yo male presenting to skilled PT evaluation following L TKA on 11/09/2024. He demonstrates deficits in L knee AROM and L hip strength as well as significant L knee edema. He also demonstrates gait deficits that are partially due to a previous injury on the R knee, however he demonstrates lack of heel strike and does not reach full knee extension on the L knee. He will benefit from skilled PT intervention to address these deficits to improve his mobility and functional independence. Plan of Care Interventions Electrical Stimulation,Gait Training,Hot Pack/Cold Pack,Intermittent Compression Pump,Manual Therapy ,Neuro Re-education,Patient/Caregiver Education, Therapeutic Activities,Therapeutic Exercise,Self- Care/Home Management PT Services Indicated Yes Treatment Frequency and 2x/week for 12 visits Duration These treatments will address the objective and functional deficits as defined above. The patient will be advanced safely and appropriately in order for the patient to progress towards his/her prior level of function. Additional exercises will be introduced and as well as a comprehensive home exercise program upon discharge, if needed, ?to ensure carryover of functional gains achieved in the clinic. This treatment plan has been reviewed and agreement upon by the patient.
--- NOTE | 2024-12-16 15:44 | PCPTNOTE ---
Cancelled session due to nausea.
--- NOTE | 2025-01-18 17:43 | PTOPREEVAL ---
Assessment and note entered by Maia Nelson DPT Evaluation Information Assessment Status Evaluation Diagnosis L knee pain ICD-10 Condition Codes (PT) Pain in left knee M25.562,Aftercare following joint replacement surgery Z47.1 Other ICD-10 Condition Codes ( Z96.659 PT) Onset 11/09/2024 Subjective Information Patient reports difficulty getting into and out of cars. he reports he has a jeep but is unable to get into it due to lack of ROM. He reports that the last few weeks progress as slowed. He reports he feels like if the swelling would go down he would be doing better. He reports walking has improved and pain is decreased. He returns to [place] in 3-4 weeks. Reported Pain Level Pain Score 1: Self Report Assessment PT Clinical Summary Mr. Rodriges has attended 10 visits of skilled PT with good progressed towards goals. He demonstrates 0-102 active L knee ROM and 112 deg of active knee flexion. He has improved ability to ambulate but continues to have difficulty getting into his vehicle. He would benefit from continued skilled PT to address remaining impairments and return to PLOF. Plan of Care Interventions Electrical Stimulation,Gait Training,Hot Pack/Cold Pack,Intermittent Compression Pump,Manual Therapy ,Neuro Re-education,Patient/Caregiver Education, Therapeutic Activities,Therapeutic Exercise,Self- Care/Home Management PT Services Indicated Yes Treatment Frequency and continued with additional 8 visits Duration These treatments will address the objective and functional deficits as defined above. The patient will be advanced safely and appropriately in order for the patient to progress towards his/her prior level of function. Additional exercises will be introduced and as well as a comprehensive home exercise program upon discharge, if needed, ?to ensure carryover of functional gains achieved in the clinic. This treatment plan has been reviewed and agreement upon by the patient.
--- NOTE | 2025-01-26 15:39 | OPREHPOC ---
Outpatient Therapy Plan of Care This is a Multidisciplinary Plan of Care that may contain components documented by all disciplines (PT, OT, and ST.) PT Problem 1 PT Problem #1 Knowledge Deficit PT Goal 1 Goal / Goal Update Independent and compliant with HEP. Target Visit 2 Progress Met PT Problem 2 PT Problem #2 Impaired Strength PT Goal 1 Goal / Goal Update Pt to improve L hip strength to 5/5. -not met 01/26 Continue Target Visit 20 Progress Not Met PT Problem 3 PT Problem #3 Impaired Range of Motion PT Goal 1 Goal / Goal Update Pt to improve L knee AROM to 0-120 deg. -not met 01/26/25 Continue Target Visit 20 Progress Not Met PT Problem 4 PT Problem #4 Impaired Functional Mobility PT Goal 1 Goal / Goal Update Pt to demonstrate improved L heel strike and to reach full L knee extension during stance phase of ambulation. -met Pt to demonstrate adherence to proper gait sequencing with forearm crutch. -met Pt to report being able to [facility] -met Pt to report 10% reduction in perceived disability on LEFS. -not met Target Visit 20 Progress Partially Met
--- NOTE | 2025-01-26 15:39 | PTOPPROG ---
Assessment and note entered by Zarina Orozco, PT Evaluation Information Assessment Status Progress Diagnosis L knee pain ICD-10 Condition Codes (PT) Pain in left knee M25.562,Aftercare following joint replacement surgery Z47.1 Other ICD-10 Condition Codes ( Z96.659 PT) Onset 11/09/2024 Subjective Information Art reports his knee feels good overall but his swelling is still present and restricts his ability to bend his knee. He reports he is able to walk without difficulty and was able to walk around [facility] while pushing the shopping cart without issue. He reports being able to get into his truck without issue but he still has some difficulty with getting into his 's Jeep because there's a lip in the door frame so he has to lift his leg higher. He states he was on his feet walking around a lot today and that his knee does feel a little stiffer. Assessment PT Clinical Summary Mr. Rodriges has attended 12 skilled PT visits following L knee replacement. He has made improvements in his gait and ability to walk long distances, however he continues to demonstrate significant swelling in the knee that is restricting his progress in ROM. His continued swelling is likely due to frequent use of the leg given anatomical limitations on the R knee. He also continues to demonstrate hip flexor weakness. Continued skilled PT intervention is indicated to make further progress toward goals. Plan of Care Interventions Electrical Stimulation,Gait Training,Hot Pack/Cold Pack,Intermittent Compression Pump,Manual Therapy ,Neuro Re-education,Patient/Caregiver Education, Therapeutic Activities,Therapeutic Exercise,Self- Care/Home Management PT Services Indicated Yes Treatment Frequency and 2x/week for 8 additional visits Duration These treatments will address the objective and functional deficits as defined above. The patient will be advanced safely and appropriately in order for the patient to progress towards his/her prior level of function. Additional exercises will be introduced and as well as a comprehensive home exercise program upon discharge, if needed, ?to ensure carryover of functional gains achieved in the clinic. This treatment plan has been reviewed and agreement upon by the patient.
== END 2025-03-10 23:59 | disposition home or self-care (01) ==
LOC: CHSPT 15:57
PROVIDERS: Visit Provider Orthopaedic Surgery
DX: Z47.1 Aftercare following joint replacement surgery (principal); M25.562 Pain in left knee; Z96.659 Presence of unspecified artificial knee joint
CPT/HCPCS: 97016; 97110; 97140; 97161

== ENCOUNTER 2025-01-19 16:44 | Outpatient (CLI) | payer MEDICARE, SELFPAY ==
[2025-01-19 16:54] LABS: Add Urine Microscopic? NO; Appearance Urine Clear (Clear); Glucose Urine UA Negative (Negative); Leukocyte Esterase Ur Negative LEU/UL (Negative); Nitrate Urine Negative (Negative); Specific Grav Ur 1.025 (1.010-1.020)
== END 2025-01-19 16:45 | disposition home or self-care (01) ==
LOC: CHSLAB 16:45
PROVIDERS: PCP Family Medicine; Visit Provider Family Medicine
DX: R33.9 Retention of urine, unspecified (principal)
CPT/HCPCS: 81003